=== PATIENT | male | born 1960 | race African-American/Black ===

== ENCOUNTER 2017-12-27 12:24 | Emergency (ER) | payer OTHER ==
--- NOTE | 2017-12-27 13:48 | ER Document Report ---
ED Blood Pressure Problem - General Chief Complaint: High Blood Pressure Stated Complaint: BLOOD PRESSURE ISSUES Time Seen by Provider: 12/27/17 13:26 Notes: pt is a 57 yo AA male with hx/o HTN presents to ED with elevated BP from dentist office. pt has not been on BP meds x 9 mos due to loss of health insurance. pt is asymptomatic. denies headache, chest pain, shortness of breath or dizziness. pt has appointment with PCM this afternoon TRAVEL OUTSIDE OF THE [place] IN LAST 30 DAYS: No - HPI Patient complains to provider of: High blood pressure Quality of pain: No pain Pt currently taking medication for problem: No - No meds 9 months Associated symptoms: None Similar symptoms previously: Yes Recently seen / treated by doctor: No - Patient has appointment today [facility] - Related Data Allergies/Adverse Reactions: lisinopril [Lisinopril] Allergy (Verified 02/01/14 06:57) Past Medical History - General Information source: Patient, Relative - Social History Smoking Status: Never Smoker Chew tobacco use (# tins/day): No Frequency of alcohol use: Social Drug Abuse: None Family History: None Patient has suicidal ideation: No Patient has homicidal ideation: No - Past Medical History Cardiac Medical History: Reports: Hx Hypertension Renal/ Medical History: Denies: Hx Peritoneal Dialysis Past Surgical History: Reports: Hx Orthopedic Surgery - knee - Immunizations Hx Diphtheria, Pertussis, Tetanus Vaccination: Yes Review of Systems - Review of Systems Constitutional: No symptoms reported EENT: No symptoms reported Cardiovascular: No symptoms reported Respiratory: No symptoms reported Gastrointestinal: No symptoms reported Genitourinary: No symptoms reported Male Genitourinary: No symptoms reported Musculoskeletal: No symptoms reported Skin: No symptoms reported Hematologic/Lymphatic: No symptoms reported Neurological/Psychological: No symptoms reported Physical Exam - Vital signs Vitals: Temp Pulse Resp BP 98.5 F 81 20 198/127 H 12/27/17 12:33 12/27/17 12:33 12/27/17 12:33 12/27/17 12:33 Interpretation: Normal - Notes Notes: PHYSICAL EXAMINATION: GENERAL: Well-appearing, well-nourished and in no acute distress. HEAD: Atraumatic, normocephalic. EYES: Pupils equal round and reactive to light, extraocular movements intact, sclera anicteric, conjunctiva are normal. ENT: Nares patent, oropharynx clear without exudates. Moist mucous membranes. NECK: Normal range of motion, supple without lymphadenopathy LUNGS: Breath sounds clear to auscultation bilaterally and equal. No wheezes rales or rhonchi. HEART: Regular rate and rhythm without murmurs ABDOMEN: Soft, nontender, nondistended abdomen. No guarding, no rebound. No masses appreciated. Musculoskeletal: Normal range of motion, no pitting or edema. No cyanosis. NEUROLOGICAL: Cranial nerves grossly intact. Normal speech, normal gait. Normal sensory, motor exams PSYCH: Normal mood, normal affect. SKIN: Warm, Dry, normal turgor, no rashes or lesions noted. - General General appearance: Appears well, Alert - HEENT Head: Normocephalic, Atraumatic Eyes: Normal Pupils: PERRL - Respiratory Respiratory status: No respiratory distress Chest status: Nontender Breath sounds: Normal Chest palpation: Normal - Cardiovascular Rhythm: Regular Heart sounds: Normal auscultation Murmur: No - Abdominal Inspection: Normal Distension: No distension Bowel sounds: Normal Tenderness: Nontender Organomegaly: No organomegaly - Back Back: Normal, Nontender - Extremities General upper extremity: Normal inspection, Nontender, Normal color, Normal ROM , Normal temperature General lower extremity: Normal inspection, Nontender, Normal color, Normal ROM , Normal temperature, Normal weight bearing. No: Lucille's sign - Neurological Neuro grossly intact: Yes Cognition: Normal Orientation: AAOx4 [place] Coma Scale Eye Opening: Spontaneous [place] Coma Scale Verbal: Oriented Willie Coma Scale Motor: Obeys Commands [place] Coma Scale Total: 15 Speech: Normal Motor strength normal: LUE, RUE, LLE, RLE Sensory: Normal - Psychological Associated symptoms: Normal affect, Normal mood - Skin Skin Temperature: Warm Skin Moisture: Dry Skin Color: Normal Course - Re-evaluation Re-evalutation: 12/27/17 13:54 Patient is asymptomatic with his hypertension at this time. He denies any signs and symptoms of hypertensive crisis. No headache, no dizziness, no chest pain, no shortness of breath. Patient is scheduled with his primary care directly upon his discharge from the ER. No further treatment is indicated in the emergency department at this time for his asymptomatic hypertension. - Vital Signs Vital signs: Temp Pulse Resp BP Pulse Ox 98.5 F 81 20 180/120 H 12/27/17 12:33 12/27/17 12:33 12/27/17 12:33 12/27/17 13:36 Discharge - Discharge Clinical Impression: Hypertension Qualifiers: Hypertension type: essential hypertension Qualified Code(s): I10 - Essential ( primary) hypertension Condition: Stable Disposition: HOME, SELF-CARE Instructions: High Blood Pressure, Requiring Treatment ([facility]) Additional Instructions: your blood pressure is high you are not exhibiting any symptoms from the hypertension follow up with your primary care today as scheduled for further evaluation and treatment Forms: Elevated Blood Pressure
[2017-12-27 13:58] VITALS: BP 190/126
== END 2017-12-27 13:58 | disposition home or self-care (01) ==
LOC: ER 12:24
DX: I10 Essential (primary) hypertension (principal)
CPT/HCPCS: 99283

== ENCOUNTER 2018-04-12 19:53 | Emergency (ER) | payer OTHER ==
[2018-04-12] MEDS ORDERED: HYDROCHLOROTHIAZIDE 12.5 MG CAPSULE PO ONE (20:33)
--- NOTE | 2018-04-12 20:36 | ER Document Report ---
ED Medical Screen (RME) - General Chief Complaint: Blurred Vision Stated Complaint: EYE PROBLEM Time Seen by Provider: 04/12/18 20:26 Notes: RAPID MEDICAL EVALUATION DISCLOSURE I have seen this patient as part of a Rapid Medical Evaluation and, if applicable, placed any initially appropriate orders. The patient will be seen and fully evaluated, including a full history and physical exam, by a provider ( in Main ED or Fast Track) when a room becomes available. 57-year-old male PMH hypertension here with complaints of blurry vision in the left eye. He noticed this yesterday evening when he was watching the news. 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 His sister takes amlodipine 10 mg (which is the medicine he is supposed to be taking, but does not have any refills so has not been taking for the past 3 months) so he borrowed several of her pills and took one yesterday as well as 1 at 6 AM this morning. He denies any chest pain shortness of breath numbness tingling. EXAM CTAB RRR TRAVEL OUTSIDE OF THE [place] IN LAST 30 DAYS: No - Related Data Allergies/Adverse Reactions: lisinopril [Lisinopril] Allergy (Verified 02/01/14 06:57) Past Medical History - Social History Chew tobacco use (# tins/day): No Frequency of alcohol use: Occasional Drug Abuse: None - Past Medical History Cardiac Medical History: Reports: Hx Hypertension Renal/ Medical History: Denies: Hx Peritoneal Dialysis Past Surgical History: Reports: Hx Orthopedic Surgery - knee - Immunizations Hx Diphtheria, Pertussis, Tetanus Vaccination: Yes Physical Exam - Vital signs Vitals: Temp Pulse Resp BP Pulse Ox 98.9 F 89 16 160/106 H 96 04/12/18 20:09 04/12/18 20:09 04/12/18 20:04/12/18 20:04/12/18 20:09 Course - Vital Signs Vital signs: Temp Pulse Resp BP Pulse Ox 98.9 F 89 16 160/106 H 96 04/12/18 20:09 04/12/18 20:09 04/12/18 20:09 04/12/18 20:09 04/12/18 20:09
--- NOTE | 2018-04-12 22:38 | RADIOLOGY REPORT (SQ) ---
EXAM DESCRIPTION: CT HEAD WITHOUT COMPLETED DATE/TIME: 04/12/2018 10:16 pm REASON FOR STUDY: blurred vision COMPARISON: None. TECHNIQUE: Axial images acquired through the brain without intravenous contrast. Images reviewed wi th bone, brain and subdural windows. Images stored on PACS. All CT scanners at this facility use dose modulation, iterative reconstruction, and/or weight based d osing when appropriate to reduce radiation dose to as low as reasonably achievable (ALARA). [facility]: Dose Right [facility]: CareDose [facility]: Dose Right [facility]: Teradose 4D [facility]: GetBulb RADIATION DOSE: CT Rad equipment meets quality standard of care and radiation dose reduction techniq ues were employed. CTDIvol: 53.2 mGy. DLP: 1017 mGy-cm. mGy. LIMITATIONS: None. FINDINGS: VENTRICLES: Prominent. CEREBRUM: No masses. No hemorrhage. No midline shift. Areas of low density in the white matter mos t likely due to chronic micro-vascular ischemic change. No evidence for acute infarction. CEREBELLUM: No masses. No hemorrhage. No alteration of density. No evidence for acute infarction. EXTRAAXIAL SPACES: Mild age-related involutional change. No fluid collections. No masses. ORBITS AND GLOBE: No intra- or extraconal masses. Normal contour of globe without masses. CALVARIUM: No fracture. PARANASAL SINUSES: No fluid or mucosal thickening. SOFT TISSUES: No mass or hematoma. OTHER: No other significant finding. IMPRESSION: MILD CHRONIC CHANGES OF ATROPHY AND MICROVASCULAR ISCHEMIA. NO ACUTE PROCESS. EVIDENCE OF ACUTE STROKE: NO. TECHNICAL DOCUMENTATION: JOB ID: [id number] Quality ID # [id number]: Final reports with documentation of one or more dose reduction techniques (e.g., Au tomated exposure control, adjustment of the mA and/or kV according to patient size, use of iterative reconstruction technique) 2010 [employer]- All Rights Reserved Reading location - IP/workstation name: [email or web address]
[2018-04-12 23:14] LABS: ABSOLUTE BASOPHILS # (AUTO) 0.1 10^3/uL (0.0-0.2); ABSOLUTE EOSINOPHILS # (AUTO) 0.2 10^3/uL (0.0-0.6); ABSOLUTE LYMPHOCYTES (AUTO) 3.5 10^3/uL (0.5-4.7); ABSOLUTE MONOCYTES (AUTO) 0.7 10^3/uL (0.1-1.4); ABSOLUTE NEUT (AUTO) 4.7 10^3/uL (1.7-8.2); BASOPHILS % (AUTO) 1.2 % (0-2); EOSINOPHILS % (AUTO) 2.6 % (0-6); HEMATOCRIT 42.1 % (37.9-51.0); HEMOGLOBIN 14.6 g/dL (13.5-17.0); LYMPHOCYTES % (AUTO) 37.9 % (13-45); MEAN CORPUSCULAR HEMOGLOBIN 30.5 pg (27.0-33.4); MEAN CORPUSCULAR HGB CONC 34.7 g/dL (32.0-36.0); MEAN CORPUSCULAR VOLUME 88 fl (80-97); MONOCYTES % (AUTO) 7.6 % (3-13); PLATELET COUNT 253 10^3/uL (150-450); RED BLOOD COUNT 4.79 10^6/uL (4.35-5.55); RED CELL DISTRIBUTION WIDTH 14.6 % (11.5-14.0); SEGMENTED NEUTROPHILS % (AUTO) 50.7 % (42-78); TOTAL CELLS COUNTED % (AUTO) 100 %; WHITE BLOOD COUNT 9.2 10^3/uL (4.0-10.5)
[2018-04-12 23:30] LABS: ANION GAP 10 (5-19); BLOOD UREA NITROGEN 14 mg/dL (7-20); CALCIUM 9.4 mg/dL (8.4-10.2); CARBON DIOXIDE 27 mmol/L (22-30); CHLORIDE 101 mmol/L (98-107); GLUCOSE 255 mg/dL (75-110); POTASSIUM 4.2 mmol/L (3.6-5.0); SODIUM 137.9 mmol/L (137-145)
--- NOTE | 2018-04-12 23:40 | ER Document Report ---
ED General - General Chief Complaint: Blurred Vision Stated Complaint: EYE PROBLEM Time Seen by Provider: 04/12/18 20:26 Notes: Patient is a pleasant 49-year-old male presents with complaint of increasing blurred vision. Patient says that he is noticed that he is now having some blurriness just the right side of his visual field. He says he had an injury to his right eye as a kid. He says since then he has been unable to see well as right eye and it has always blurred. He says spite having a blurred right visual field he usually is able to see clearly with both eyes open because the left eye seems to compensate. He says recently he has noticed that he is seeing warm blurred vision when looking to both eyes. He says if he covers his right eye his vision is completely clear when looking with his left eye along. He says if he covers his left eye his right eye has blurred vision which again is normal for him. He said that his post amlodipine for high blood pressure. He did notice that his blood pressure is little high and therefore he took some of his sister's amlodipine. He denies any recent fevers or infections. No focal weakness or numbness. He said he did have a slight headache earlier but that has since resolved. No neck pain. No abdominal pain. No chest pain. No shortness of breath. No other complaints of TRAVEL OUTSIDE OF THE [place] IN LAST 30 DAYS: No - Related Data Allergies/Adverse Reactions: lisinopril [Lisinopril] Allergy (Verified 02/01/14 06:57) Past Medical History - Social History Smoking Status: Never Smoker Chew tobacco use (# tins/day): No Frequency of alcohol use: Occasional Drug Abuse: None Family History: None Patient has suicidal ideation: No Patient has homicidal ideation: No - Past Medical History Cardiac Medical History: Reports: Hx Hypertension Renal/ Medical History: Denies: Hx Peritoneal Dialysis Past Surgical History: Reports: Hx Orthopedic Surgery - knee - Immunizations Hx Diphtheria, Pertussis, Tetanus Vaccination: Yes Review of Systems - Review of Systems Notes: My Normal Review Basic REVIEW OF SYSTEMS: CONSTITUTIONAL : Denies fever, chills, or sweats. Denies recent illness. EENT: Blurred vision and right visual field. No eye pain. CARDIOVASCULAR: Denies chest pain. RESPIRATORY: Denies cough, cold, or chest congestion. Denies shortness of breath, difficulty breathing, or wheezing. GASTROINTESTINAL: Denies abdominal pain. Denies nausea, vomiting, or diarrhea. Denies constipation. Last BM: MUSCULOSKELETAL: Denies neck or back pain or joint pain or swelling. SKIN: Denies rash or skin lesions. NEUROLOGICAL: Denies altered mental status or loss of consciousness. Denies headache. Denies weakness or paralysis or loss of use of either side. Denies problems with gait or speech. Denies sensory or motor loss. ALL OTHER SYSTEMS REVIEWED AND NEGATIVE. Physical Exam - Vital signs Vitals: Temp Pulse Resp BP Pulse Ox 98.9 F 89 16 160/106 H 96 04/12/18 20:09 04/12/18 20:09 04/12/18 20:09 04/12/18 20:09 04/12/18 20:09 - Notes Notes: General Appearance: Well nourished, alert, cooperative, no acute distress, no obvious discomfort. Well appearing. Vitals: reviewed, See vital signs table. Head: no swelling or tenderness to the head Eyes: PERRL, EOMI, Conjuctiva clear. Bedside ultrasound of both eyes does not show any evidence of retinal vitreous detachment. Mouth: No decreasd moisture Neck: Supple, no neck tenderness, No thyromegaly Lungs: No wheezing, No rales, No rhonci, No accessory muscle use, good air exchange bilaterally. Heart: Normal rate, Regular rythm, No murmur, no rub Abdomen: Normal BS, soft, No rigidity, No abdominal tenderness, No guarding, no rebound, no abdominal masses, no organomegaly Extremities: strength 5/5 in all extremities, good pulses in all extremities, no swelling or tenderness in the extremities, no edema. Skin: warm, dry, appropriate color, no rash Neuro: speech clear, oriented x 3, normal affect, responds appropriately to questions. Cranial nerves II through XII are intact with exception of some blurred vision in the right eye. Distal sensation intact. Patient moves all extremities without difficulty. Good strength in all 4 extremities. Normal coordination of movements. - HEENT Visual acuity- Right eye: 0 Visual acuity- Left eye: 20/30 Visual acuity- Both eyes: 20/30 Corrective lenses worn: No Course - Re-evaluation Re-evalutation: 04/13/18 05:44 Is really unclear exactly why the patient is starting to have some more blurred vision in his visual fear that he does chronically. Patient's function is left eye, which is his good eye, appears to still be normal. His good visual acuity with the left eye. When he covers his right eye he sees very clearly on his left eye without any blurred vision in his visual field. The only time he has blurred vision and visual field is when he leaves his right eye open. Patient says he chronically has blurry vision with his right eye is just prior to recently he did not really notice of blurred vision as much when his left eye was open. He did have a mild headache earlier today but that has since resolved. He does have hypertension which he is supposed to be on Melisa for but he is not been taking it for some time now. I will place him back on his blood pressure medication. I informed her these of established himself and follow-up closely with primary care doctor. There is no signs of stroke and that he does not have any focal weakness or numbness, no slurred speech, no discoordination. He looks very well and I feel safe to be discharged home. I informed him he must follow-up with eye doctor next 1-2 days for close reevaluation. Encourage him return to ER immediately if he has severe headache, vomiting, worsening vision changes, chest pain, shortness of breath, focal weakness or numbness, or feels unwell. Patient agrees with plan will be discharged home. Dictation of this chart was performed using voice recognition software; therefore, there may be some unintended grammatical errors. - Vital Signs Vital signs: Temp Pulse Resp BP Pulse Ox 98 F 89 17 166/119 H 96 04/13/18 01:10 04/12/18 20:09 04/13/18 01:01 04/13/18 01:00 04/13/18 01:01 - Laboratory Result Diagrams: 04/12/18 22:55 04/12/18 22:55 Laboratory results interpreted by me: 04/12/18 04/12/18 22:55 22:55 RDW 14.6 H Glucose 255 H Discharge - Discharge Clinical Impression: Blurred vision, right eye, Hyperglycemia Hypertension Qualifiers: Hypertension type: unspecified Qualified Code(s): I10 - Essential (primary) hypertension Condition: Good Disposition: HOME, SELF-CARE Instructions: Family Physicians / Practices Additional Instructions: Please take the Melisa as prescribed. Please return to the ER immediately if you develop worsening high blood pressure, recurrent headache, chest pain, difficulty breathing, worsening visual changes, or if you feel unwell. Please follow up with the opthamologist ( Dr. Story or Dr. Naylor) for close reevaluation due to your visual changes. Please follow up and establish yourself with a primary care physician in the area. I have included a list of local primary care doctors. Please start taking the Metformin to help with blood sugar control as your blood sugar was high today. Prescriptions: Amlodipine Bes/Olmesartan Med [Melisa 10-40 mg Tablet] 1 each PO DAILY #30 tablet Metformin HCl [Glucophage 500 mg Tablet] 500 mg PO BID #60 tablet Referrals: RODRIGO STORY DO [ACTIVE STAFF] - Follow up tomorrow NATHANIEL NAYLOR MD [ACTIVE STAFF] - Follow up tomorrow
[2018-04-12] MEDS ORDERED: LOSARTAN POTASSIUM 50 MG TABLET PO ONE (23:49)
[2018-04-12] MEDS ORDERED: METFORMIN HCL 500 MG TABLET PO ONE (23:50)
[2018-04-13 01:13] VITALS: BP 166/119
== END 2018-04-13 01:18 | disposition home or self-care (01) ==
LOC: ER 19:53
DX: H53.8 Other visual disturbances (principal); R73.9 Hyperglycemia, unspecified; I10 Essential (primary) hypertension
CPT/HCPCS: 36415; 70450; 80048; 85025; 99284

== ENCOUNTER 2019-01-28 08:55 | Emergency (ER) | payer OTHER ==
[2019-01-28] MEDS ORDERED: ACETAMINOPHEN 325 MG TABLET PO ONE (09:30)
--- NOTE | 2019-01-28 09:35 | ER Document Report ---
ED Medical Screen (RME) - General Chief Complaint: Rib Pain Stated Complaint: RIB PAIN Time Seen by Provider: 01/28/19 09:25 Mode of Arrival: Ambulatory Information source: Patient Notes: Patient is a 58-year-old male who presents to the emergency department with chief complaint of bilateral rib pain, fever and productive cough. Patient reports cough started Monday and on Monday he began having pain to his anterior bilateral ribs. Patient reports pain is worse with deep breaths. Patient denies any nausea or vomiting. He is a non-smoker. His primary care is at the [place] [facility]. Reports history of pneumonia, denies history of pulmonary embolism. Patient upgraded to ISELA 2 due to fever, tachycardia and hypoxia with O2 sat of 90%. Exam: Lung sounds are clear and equal bilaterally. I have greeted and performed a rapid initial assessment of this patient. A comprehensive ED assessment and evaluation of the patient, analysis of test results and completion of the medical decision making process will be conducted by additional ED providers. Dictation of this chart was performed using voice recognition software; therefore, there may be some unintended grammatical errors. TRAVEL OUTSIDE OF THE [place] IN LAST 30 DAYS: No - Related Data Allergies/Adverse Reactions: lisinopril [Lisinopril] Allergy (Verified 01/28/19 08:59) Past Medical History - Past Medical History Cardiac Medical History: Reports: Hx Hypertension Renal/ Medical History: Denies: Hx Peritoneal Dialysis Past Surgical History: Reports: Hx Orthopedic Surgery - knee - Immunizations Hx Diphtheria, Pertussis, Tetanus Vaccination: Yes Physical Exam - Vital signs Vitals: Temp Pulse Resp BP Pulse Ox 102.5 F H 120 H 16 157/100 H 91 L 01/28/19 09:22 01/28/19 09:22 01/28/19 09:22 01/28/19 09:22 01/28/19 09:22 Course - Vital Signs Vital signs: Temp Pulse Resp BP Pulse Ox 102.5 F H 120 H 16 157/100 H 91 L 01/28/19 09:22 01/28/19 09:22 01/28/19 09:22 01/28/19 09:22 01/28/19 09:22
--- NOTE | 2019-01-28 10:01 | RADIOLOGY REPORT (SQ) ---
EXAM DESCRIPTION: CHEST 2 VIEWS COMPLETED DATE/TIME: 01/28/2019 9:45 am REASON FOR STUDY: fever, cough, rib pain COMPARISON: Two-view chest 02/01/2014 EXAM PARAMETERS: NUMBER OF VIEWS: two views TECHNIQUE: Digital Frontal and Lateral radiographic views of the chest acquired. RADIATION DOSE: NA LIMITATIONS: none FINDINGS: LUNGS AND PLEURA: No opacities, masses or pneumothorax. No pleural effusion. MEDIASTINUM AND HILAR STRUCTURES: No masses or contour abnormalities. HEART AND VASCULAR STRUCTURES: Heart normal size. No evidence for failure. BONES: No acute findings. HARDWARE: None in the chest. OTHER: No other significant finding. IMPRESSION: NO ACUTE RADIOGRAPHIC FINDING IN THE CHEST. TECHNICAL DOCUMENTATION: JOB ID: [id number] [employer]- All Rights Reserved Reading location - IP/workstation name: [email or web address]
[2019-01-28] MEDS ORDERED: NORMAL SALINE 1000 ML 1,000 ML IV ONE (10:03)
--- NOTE | 2019-01-28 10:08 | ER Document Report ---
ED General - General Chief Complaint: Rib Pain Stated Complaint: RIB PAIN Time Seen by Provider: 01/28/19 09:25 Mode of Arrival: Ambulatory Notes: Patient began getting sick last Monday or he has had some ge neralized rib pain throughout his. He first noted a dry cough. Entire thorax, anteriorly and posteriorly. He says it feels as if a 50 pound child is sitting on his chest. His dry cough has now become productive in the past couple of days and was producing clear phlegm yesterday, but this morning he coughed up some brown material. Has not seen actual blood in his sputum. Started running fever on Monday and it has gotten worse on Monday. Did not get a flu shot this year. Patient has no history of any lung disease. Does not smoke. PMH: NIDDM, hypertension, high cholesterol. No history of any heart disease. [facility] TRAVEL OUTSIDE OF THE [place] IN LAST 30 DAYS: No - Related Data Allergies/Adverse Reactions: lisinopril [Lisinopril] Allergy (Verified 01/28/19 08:59) Past Medical History - General Information source: Patient - Social History Smoking Status: Never Smoker Chew tobacco use (# tins/day): No Frequency of alcohol use: Occasional Drug Abuse: None Family History: None, Reviewed & Not Pertinent Patient has suicidal ideation: No Patient has homicidal ideation: No - Past Medical History Cardiac Medical History: Reports: Hx Hypercholesterolemia, Hx Hypertension Denies: Hx Coronary Artery Disease, Hx Heart Attack Pulmonary Medical History: Reports: Hx Pneumonia Denies: Hx Asthma, Hx COPD Endocrine Medical History: Reports: Hx Diabetes Mellitus Type 2 Past Surgical History: Reports: Hx Orthopedic Surgery - Right knee - Immunizations Hx Diphtheria, Pertussis, Tetanus Vaccination: Yes Review of Systems - Review of Systems Notes: REVIEW OF SYSTEMS: CONSTITUTIONAL : Has had fever. EENT: Denies eye, ear, nose or mouth or throat pain or other symptoms. CARDIOVASCULAR: See HPI. RESPIRATORY: See HPI. GASTROINTESTINAL: Denies abdominal pain or nausea, vomiting, or diarrhea. GENITOURINARY: Denies difficulty or painful urinating, urinary frequency, blood in urine. MUSCULOSKELETAL: Denies back or neck pain. Denies joint pain or swelling. SKIN: Denies rash or skin lesions. NEUROLOGICAL: Denies LOC or altered mental status. Denies headache. Denies sensory loss or motor deficits. ALL OTHER SYSTEMS REVIEWED AND NEGATIVE. Physical Exam - Vital signs Vitals: Temp Pulse Resp BP Pulse Ox 102.5 F H 120 H 16 157/100 H 91 L 01/28/19 09:22 01/28/19 09:22 01/28/19 09:22 01/28/19 09:22 01/28/19 09:22 Interpretation: Tachycardic, Febrile Notes: PHYSICAL EXAMINATION: GENERAL: Well-appearing, in no acute distress. Temp 102.5 orally. O2 sat 92% on room air. HEAD: Atraumatic, normocephalic. EYES: Pupils equal round and reactive to light, extraocular movements intact. ENT: oropharynx clear without exudates. Moist mucous membranes. NECK: Normal range of motion, supple. LUNGS: Breath sounds clear and equal bilaterally. HEART: Regular rate and rhythm without murmurs. Heart rate 116 at triage. ABDOMEN: Soft, nontender. No guarding or rebound. No masses. BACK: No tenderness throughout entire back. EXTREMITIES: Normal range of motion without pain. Negative Homans bilaterally. NEUROLOGICAL: Normal speech, normal gait. Normal sensory, motor, and reflex exams. Awake, alert, and oriented x3. Cranial nerves normal. PSYCH: Normal mood, normal affect. SKIN: Warm, dry, no rashes. Course - Re-evaluation Re-evalutation: 01/28/19 13:03 Other than a white count of 13,000, patient has an essentially normal workup. CT scan of his chest showed no evidence of blood clots or pneumonia. Other lab work was unremarkable. Patient was started on IV antibiotic of Rocephin in the ED. I am still going to send him home on an antibiotic (Z-Alli), even though this might nocturnist physician to be a viral illness. - Vital Signs Vital signs: Temp Pulse Resp BP Pulse Ox 100 F 117 H 23 H 113/73 97 01/28/19 12:42 01/28/19 09:35 01/28/19 12:00 01/28/19 11:01 01/28/19 12:00 - Laboratory Result Diagrams: 01/28/19 10:00 01/28/19 10:00 Laboratory results interpreted by me: 01/28/19 01/28/19 01/28/19 10:00 10:00 10:20 WBC 13.1 H Hgb 13.2 L Lymphocytes % 7.3 L Monocytes % 14.7 H Absolute Neutrophils 10.1 H Absolute Monocytes 1.9 H Sodium 135.8 L Glucose 243 H Urine Protein 30 H Urine Blood SMALL H Urine Urobilinogen 2.0 H - Diagnostic Test Radiology results interpreted by me: 01/28/19 13:03 Chest x-ray was normal. Discharge - Discharge Clinical Impression: Fever, URI (upper respiratory infection), Bronchitis Condition: Stable Disposition: HOME, SELF-CARE Additional Instructions: UPPER RESPIRATORY ILLNESS: You have a viral infection of the respiratory passages -- a "cold." This common infection causes nasal congestion, drainage, and often sore throat and cough. It is highly contagious. The disease usually lasts about 10 to 14 days. There is no "cure" for the viral infection -- it must run its course. If there is a complication, such as bacterial infection in the nose, sinuses, middle ear, or bronchial tubes, antibiotics may be required. The antibiotics won't affect the virus. Drink plenty of fluids. A humidifier may help. An expectorant medication or decongestant may make you more comfortable. Use acetaminophen or ibuprofen for fever or aches. See the doctor if fever persists over two days, if there is any significant worsening of your symptoms, or if you simply fail to improve as expected. Bronchitis You have acute bronchitis. This disease is an infection or inflammation of the air passageways in your lungs. Symptoms usually include cough, low grade fever, shortness of breath, and wheezing. The cough usually persists for a couple of weeks. Most cases of bronchitis get better without antibiotics. We prescribe antibiotics when we believe bacteria are damaging your airways, or if there's high risk the bronchitis will worsen into pneumonia. Increase your fluid intake. A cool mist humidifier may make your lungs more comfortable. An expectorant (cough medicine that loosens phlegm) can help. If you smoke, STOP!!! Recovery from bronchitis can be somewhat slow, but you should see improvement within a day or two. Repeated episodes of bronchitis may result in lung damage -- for example, chronic bronchitis, recurrent pneumonias, or emphysema. Call the doctor if you develop increasing fever, shortness of breath, chest pain, bloody sputum, or otherwise worsen. If you have not improved at all after several days, contact the physician. USE OF ACETAMINOPHEN (Tylenol): Acetaminophen may be taken for pain relief or fever control. It's much safer than aspirin, offering a wider range of "safe" dosages. It is safe during . Some brand names are Tylenol, Panadol, Datril, Anacin 3, Tempra, and Liquiprin. Acetaminophen can be repeated every four hours. The following are maximum recommended dosages: >89 pounds or adults 650 mg to 900 mg Acetaminophen can be repeated every four hours. Maximum dose not to exceed 4000 mg a day. Azithromycin Azithromycin (Zithromax) is a broad spectrum antibiotic in the same class as erythromycin. It can treat a variety of bacterial infections, but is most frequently used for respiratory infections. Azithromycin is extremely long-lasting. It accumulates in body tissues and continues to kill bacteria for many days. In order to improve absorption, Azithromycin should be taken at least one hour before or two hours after a meal. It does not have the same strong tendency to upset the stomach as erythromycin and is usually very well tolerated. Patients who have had a rash or other true allergic reactions to erythromycin should not take this medication. Call if you develop gastrointes tinal distress, severe diarrhea, rash, hives, itching, or shortness of breath. FOLLOW-UP CARE: If you have been referred to a physician for follow-up care, call the physicians office for an appointment as you were instructed or within the next two days. If you experience worsening or a significant change in your symptoms, notify the physician immediately or return to the Emergency Department at any time for re-evaluation. Drink plenty of fluids and get some rest. Return if you have new or worsening symptoms. Take the medication prescribed. Prescriptions: Azithromycin [Zithromax 250 mg Tablet] 250 mg PO ASDIR PRN #6 tablet PRN Reason:
[2019-01-28 10:16] LABS: ABSOLUTE BASOPHILS # (AUTO) 0.1 10^3/uL (0.0-0.2); ABSOLUTE EOSINOPHILS # (AUTO) 0.1 10^3/uL (0.0-0.6); ABSOLUTE MONOCYTES (AUTO) 1.9 10^3/uL (0.1-1.4); ABSOLUTE NEUT (AUTO) 10.1 10^3/uL (1.7-8.2); BASOPHILS % (AUTO) 0.6 % (0-2); EOSINOPHILS % (AUTO) 0.4 % (0-6); HEMOGLOBIN 13.2 g/dL (13.5-17.0); LYMPHOCYTES % (AUTO) 7.3 % (13-45); MEAN CORPUSCULAR HEMOGLOBIN 29.6 pg (27.0-33.4); MEAN CORPUSCULAR HGB CONC 34.8 g/dL (32.0-36.0); MEAN CORPUSCULAR VOLUME 85 fl (80-97); MONOCYTES % (AUTO) 14.7 % (3-13); PLATELET COUNT 308 10^3/uL (150-450); RED BLOOD COUNT 4.46 10^6/uL (4.35-5.55); RED CELL DISTRIBUTION WIDTH 13.8 % (11.5-14.0); TOTAL CELLS COUNTED % (AUTO) 100 %; WHITE BLOOD COUNT 13.1 10^3/uL (4.0-10.5)
[2019-01-28] MEDS ORDERED: CEFTRIAXONE 1 GM/D5W RTU 1 GM/50 ML RTUPB IV ONE (10:18)
[2019-01-28 10:38] LABS: ALANINE AMINOTRANSFERASE 40 U/L (21-72); ALBUMIN 4.2 g/dL (3.5-5.0); ALKALINE PHOSPHATASE 73 U/L (38-126); ANION GAP 10 (5-19); ASPARTATE AMINO TRANSFERASE 36 U/L (17-59); BILIRUBIN,DIRECT 0.3 mg/dL (0.0-0.4); BILIRUBIN,TOTAL 0.6 mg/dL (0.2-1.3); BLOOD UREA NITROGEN 14 mg/dL (7-20); CALCIUM 9.1 mg/dL (8.4-10.2); CARBON DIOXIDE 24 mmol/L (22-30); CHLORIDE 102 mmol/L (98-107); GLUCOSE 243 mg/dL (75-110); POTASSIUM 3.8 mmol/L (3.6-5.0); SODIUM 135.8 mmol/L (137-145); TOTAL PROTEIN 8.2 g/dL (6.3-8.2)
[2019-01-28 11:40] LABS: APPEARANCE,URINE CLEAR; BILIRUBIN,URINE NEGATIVE (NEGATIVE); COLOR,URINE YELLOW; GLUCOSE, URINE NEGATIVE (NEGATIVE); KETONES,URINE NEGATIVE (NEGATIVE); LEUKOCYTE ESTERASE,URINE NEGATIVE (NEGATIVE); NITRITE,URINE NEGATIVE (NEGATIVE); PROTEIN,URINE 30 mg/dL (NEGATIVE); URINE SPECIFIC GRAVITY 1.014
--- NOTE | 2019-01-28 11:45 | RADIOLOGY REPORT (SQ) ---
EXAM DESCRIPTION: CTA CHEST COMPLETED DATE/TIME: 01/28/2019 11:31 am REASON FOR STUDY: Cough and fever, generalized chest pain, normal cx COMPARISON: Same day chest radiograph TECHNIQUE: CT scan of the chest performed using helical scanning technique with dynamic intravenous contrast injection. Images reviewed with lung, soft tissue and bone windows. Reconstructed coronal and sagittal MPR images reviewed. Additional 3 dimensional post-processing performed to develop Maximal Intensity Projection images (FL P). All images stored on PACS. All CT scanners at this facility use dose modulation, iterative reconstruction, and/or weight based d osing when appropriate to reduce radiation dose to as low as reasonably achievable (ALARA). [facility]: Dose Right [facility]: CareDose [facility]: Dose Right [facility]: Teradose 4D [facility]: MashON CONTRAST TYPE AND DOSE: contrast/concentration: Isovue 350.00 mg/ml; Total Contrast Delivered: 87.0 ml; Total Saline Delivered: 90.0 ml Contrast bolus optimized for the pulmonary arteries. Not diagnostic for the aorta. RENAL FUNCTION: GFR > 60. RADIATION DOSE: CT Rad equipment meets quality standard of care and radiation dose reduction techniq ues were employed. CTDIvol: 16.5 - 30.8 mGy. DLP: 1173 mGy-cm. . LIMITATIONS: Poor contrast bolus FINDINGS: LUNGS AND PLEURA: No masses, infiltrates, or pneumothorax. No pleural effusions or pleura l calcifications. AORTA AND GREAT VESSELS: No aneurysm. Contrast bolus not optimized for the aorta. HEART: No pericardial effusion. Left coronary artery calcifications. PULMONARY ARTERIES: Evaluation of the pulmonary arteries is very limited by poor contrast bolus (main pulmonary artery HU = 95). Within this limitation, there is no obvious central or proximal lobar pu lmonary embolism. Evaluation of the segmental and more distal vessels is nondiagnostic. HILAR AND MEDIASTINAL STRUCTURES: No identified masses or abnormal nodes. HARDWARE: None in the chest. UPPER ABDOMEN: No significant findings. Limited exam. THYROID AND OTHER SOFT TISSUES: No masses. No adenopathy. BONES: No acute or significant finding. Disc degenerative disease of the thoracic spine. 3D MIPS: Confirm above findings. OTHER: No other significant finding. IMPRESSION: 1. Evaluation of the pulmonary arteries is very limited by poor contrast bolus (main pu lmonary artery HU = 95). Within this limitation, there is no obvious central or proximal lobar pulmo nary embolism. Evaluation of the segmental and more distal vessels is nondiagnostic. If there is hi gh persistent concern for pulmonary embolism, further evaluation may include repeat CT angiogram, pul monary VQ scan, and/or lower extremity Doppler ultrasound to evaluate for DVT nidus. 2. No significant airspace disease. 3. Coronary artery disease. COMMENT: Quality ID # [id number]: Final reports with documentation of one or more dose reduction techniques (e.g., Automated exposure control, adjustment of the mA and/or kV according to patient size, use of iterative reconstruction technique) TECHNICAL DOCUMENTATION: JOB ID: [id number] [employer]- All Rights Reserved Reading location - IP/workstation name: [email or web address]
[2019-01-28 12:02] VITALS: BP 113/73
[2019-01-28 12:49] LABS: A TYPE INFLUENZA AG NEGATIVE (NEGATIVE); B INFLUENZA AG NEGATIVE (NEGATIVE)
== END 2019-01-28 13:16 | disposition home or self-care (01) ==
LOC: ER 08:55
DX: J06.9 Acute upper respiratory infection, unspecified (principal); J40 Bronchitis, not specified as acute or chronic; R07.81 Pleurodynia; R50.9 Fever, unspecified; R00.0 Tachycardia, unspecified; E11.9 Type 2 diabetes mellitus without complications; I10 Essential (primary) hypertension; E78.00 Pure hypercholesterolemia, unspecified
CPT/HCPCS: 99284; 96361; 96374; 36415; 87040; 87070; 87086; 87205; 85025; 87077; 80053; 81001; 83605; 87804; 71046; 71275; J7030; J0696

== ENCOUNTER 2019-04-23 12:18 | Inpatient (IN) | payer OTHER ==
[2019-04-23] MEDS ORDERED: DILTIAZEM HCL INJ 25 MG/5 ML VIAL ONE (12:33)
[2019-04-23] MEDS ORDERED: DILTIAZEM HCL INJ 25 MG/5 ML VIAL IV ONE ×2 (12:36→13:00)
[2019-04-23] MEDS ORDERED: DILTIAZEM HCL/D5W 125 MG/125 ML RTUINJ IV ONE (12:41)
[2019-04-23] MEDS: DILTIAZEM HCL/D5W 125 MG/125 ML RTUINJ IV PRN (12:43)
[2019-04-23] MEDS ORDERED: NORMAL SALINE 1000 ML 1,000 ML IV ONE ×2 (12:48→13:09)
[2019-04-23] MEDS ORDERED: ASPIRIN 81 MG TABLET, CHEWABLE PO ONE (13:04)
[2019-04-23] MEDS ORDERED: MAGNESIUM SULFATE/D5W 1 GM/100 ML RTUPB IV ONE (13:08)
--- NOTE | 2019-04-23 13:08 | ER Document Report ---
ED General - General Chief Complaint: Irregular Pulse Stated Complaint: BLOOD PRESSURE ISSUES Mode of Arrival: Medic Information source: Patient, Relative, Emergency Med Personnel Notes: 58-year-old male with hypertension, hyperlipidemia, type 2 diabetes presents via EMS from his primary care physician's office at the [facility] when he was found to be in atrial fibrillation at a heart rate of 180. Patient denies any previous history of atrial fibrillation. He denies any chest pain, palpitations, shortness of breath. He states his blood pressure has been running high despite being on 3 different blood pressure medications including losartan, amlodipine and hydrochlorothiazide and this is the reason that he went to his primary care physician's office. Patient denies headache, dizziness, recent illness, abdominal pain, dysuria, hematuria. Patient does not smoke, occasionally drinks. TRAVEL OUTSIDE OF THE [place] IN LAST 30 DAYS: No - HPI Onset: Just prior to arrival Onset/Duration: Sudden Quality of pain: No pain Associated symptoms: None. denies: Chest pain, Fever, Hurts to breath, Leg swelling, Nausea, Vomiting, Shortness of breath, Sweating - Related Data Allergies/Adverse Reactions: lisinopril [Lisinopril] Allergy (Verified 01/28/19 08:59) Past Medical History - Social History Smoking Status: Never Smoker Chew tobacco use (# tins/day): No Frequency of alcohol use: Social Drug Abuse: None Family History: None, Reviewed & Not Pertinent Patient has suicidal ideation: No Patient has homicidal ideation: No - Past Medical History Cardiac Medical History: Reports: Hx Hypercholesterolemia, Hx Hypertension Denies: Hx Coronary Artery Disease, Hx Heart Attack Pulmonary Medical History: Reports: Hx Pneumonia Denies: Hx Asthma, Hx COPD Endocrine Medical History: Reports: Hx Diabetes Mellitus Type 2 Renal/ Medical History: Denies: Hx Peritoneal Dialysis Past Surgical History: Reports: Hx Orthopedic Surgery - Right knee - Immunizations Hx Diphtheria, Pertussis, Tetanus Vaccination: Yes Review of Systems - Review of Systems Notes: REVIEW OF SYSTEMS: CONSTITUTIONAL : Denies fever, chills, or sweats. Denies recent illness. Denies weight loss, recent hospitalizations. EENT: Denies visual changes, eye pain. Denies sore throat, oral lesions, diff iculty swallowing. CARDIOVASCULAR: Denies chest pain. Denies palpitations. Denies lower extremity edema. RESPIRATORY: Denies cough. Denies shortness of breath, wheezing. GASTROINTESTINAL: Denies abdominal pain or distention. Denies nausea, vomiting, or diarrhea. Denies blood in vomitus, stools, or per rectum. Denies black, tarry stools. Denies constipation. GENITOURINARY: Denies difficulty urinating, painful urination, frequency, blood in urine, testicular pain or penile discharge. MUSCULOSKELETAL: Denies back or neck pain or stiffness. Denies joint pain or swelling. SKIN: Denies rash, lesions or sores. HEMATOLOGIC : Denies easy bruising or bleeding. LYMPHATIC: Denies swollen glands. NEUROLOGICAL: Denies confusion or altered mental status. Denies loss of consciousness. Denies dizziness or lightheadedness. Denies headache. Denies weakness or paralysis. Denies problems difficulty with ambulation, slurred speech. Denies sensory loss, numbness, or tingling. Denies seizures. PSYCHIATRIC: Denies anxiety or stress. Denies depression, suicidal ideation, or Physical Exam - Vital signs Vitals: Resp BP Pulse Ox 21 H 126/75 H 97 04/23/19 12:25 04/23/19 12:25 04/23/19 12:25 - Notes Notes: PHYSICAL EXAMINATION: GENERAL: Well-appearing, well-nourished and in no acute distress. HEAD: Atraumatic, normocephalic. EYES: Pupils equal round and reactive to light, extraocular movements intact, sclera anicteric, conjunctiva are normal. ENT: Nares patent, oropharynx clear without exudates. Moist mucous membranes. NECK: Normal range of motion, supple without lymphadenopathy LUNGS: Breath sounds clear to auscultation bilaterally and equal. No wheezes rales or rhonchi. HEART: Tachycardic, irregular rhythm ABDOMEN: Soft, nontender, nondistended abdomen. No guarding, no rebound. No masses appreciated. Musculoskeletal: Normal range of motion, no pitting or edema. No cyanosis. NEUROLOGICAL: Cranial nerves grossly intact. Normal speech, normal gait. Normal sensory, motor exams PSYCH: Normal mood, normal affect. SKIN: Warm, Dry, normal turgor, no rashes or lesions noted. Course - Re-evaluation Re-evalutation: Laboratory 04/23/19 04/23/19 04/23/19 12:38 12:38 12:38 WBC 7.8 RBC 4.62 Hgb 13.7 Hct 40.5 MCV 88 MCH 29.6 MCHC 33.8 RDW 15.3 H Plt Count 312 Seg Neutrophils % 45.8 Lymphocytes % 42.1 Monocytes % 9.8 Eosinophils % 1.4 Basophils % 0.9 Absolute Neutrophils 3.6 Absolute Lymphocytes 3.3 Absolute Monocytes 0.8 Absolute Eosinophils 0.1 Absolute Basophils 0.1 PT INR Sodium 136.5 L Potassium 4.2 Chloride 101 Carbon Dioxide 26 Anion Gap 10 BUN 26 H Creatinine 1.33 H Est GFR ( Amer) > 60 Est GFR (Non-Af Amer) 55 L Glucose 191 H Calcium 9.3 Phosphorus 3.4 Magnesium 1.5 L Total Bilirubin 0.7 Direct Bilirubin 0.3 Neonat Total Bilirubin Not Reportable Neonat Direct Bilirubin Not Reportable Neonat Indirect Bili Not Reportable AST 18 ALT 20 L Alkaline Phosphatase 54 Creatine Kinase 81 CK-MB (CK-2) 0.71 Troponin I < 0.012 Total Protein 7.1 Albumin 3.7 TSH Free T4 Free T3 pg/mL 04/23/19 04/23/19 12:38 12:38 WBC RBC Hgb Hct MCV MCH MCHC RDW Plt Count Seg Neutrophils % Lymphocytes % Monocytes % Eosinophils % Basophils % Absolute Neutrophils Absolute Lymphocytes Absolute Monocytes Absolute Eosinophils Absolute Basophils PT 14.0 INR 1.08 Sodium Potassium Chloride Carbon Dioxide Anion Gap BUN Creatinine Est GFR ( Amer) Est GFR (Non-Af Amer) Glucose Calcium Phosphorus Magnesium Total Bilirubin Direct Bilirubin Neonat Total Bilirubin Neonat Direct Bilirubin Neonat Indirect Bili AST ALT Alkaline Phosphatase Creatine Kinase CK-MB (CK-2) Troponin I Total Protein Albumin TSH 1.71 Free T4 1.01 Free T3 pg/mL 4.14 Chest X-Ray 04/23/19 00:00 IMPRESSION: NO ACUTE FINDINGS. Temp Pulse Resp BP Pulse Ox 97.8 F 19 98/74 L 97 04/23/19 12:28 04/23/19 16:00 04/23/19 16:55 04/23/19 16:00 04/23/19 13:06 58-year-old male with hypertension, hyperlipidemia presents via EMS from his [facility] physician's office after being found in atrial fibrillation with RVR. Patient's initial heart rate upon arrival is 188. Blood pressure 118/70. Patient did receive IV fluids prior to arrival by EMS. An initial Cardizem bolus of 25 mg was given and the patient was placed on a Cardizem drip. After 20 minutes patient's heart rate still remained in the 170s so an additional Cardizem bolus of 15 mg was administered. 04/23/19 13:55 Patient's heart rate is in the 160s so digoxin 0.125 mg was administered x2. Patient's heart rate had no improvement after this and so 2.5 mg of metoprolol were given and patient's current heart rate is 127. We will continue to monitor. Current heart rate 108/74. Patient remains asymptomatic. Crash cart outside of the room patient does have pads on. 04/23/19 14:57 Additional 5 mg of metoprolol was given and patient's heart rate is now 139. There continues to be significant fluctuations in the patient's heart rate. He does remain asymptomatic. I did consult Dr. Matthieu Jung wet end supervisor who recommends continuation of the Cardizem drip and scheduled Lopressor 2.5 mg every 4 hours as needed for a heart rate over 140. This should be held if p atient's systolic pressure is less than 100. I have talked to Dr. Mishra who has agreed to admit the patient to the [facility]. 04/23/19 17:08 04/23/19 17:09 CBC, CMP, cardiac enzymes, thyroid panel are all within normal limits. - Vital Signs Vital signs: Temp Pulse Resp BP Pulse Ox 97.8 F 19 98/74 L 97 04/23/19 12:28 04/23/19 16:00 04/23/19 16:55 04/23/19 16:00 - Laboratory Result Diagrams: 04/23/19 12:38 04/23/19 12:38 Laboratory results interpreted by me: 04/23/19 04/23/19 12:38 12:38 RDW 15.3 H Sodium 136.5 L BUN 26 H Creatinine 1.33 H Est GFR (Non-Af Amer) 55 L Glucose 191 H Magnesium 1.5 L ALT 20 L - Diagnostic Test Radiology reviewed: Image reviewed, Reports reviewed - EKG Interpretation by Me Rate: Tachycardia Rhythm: A.Fib When compared to previous EKG there are: Previous EKG unavailable Critical Care Note - Critical Care Note Total time excluding time spent on procedures (mins): 45 - Minutes of critical care time spent in direct contact evaluating and reevaluating the patient, treating symptoms, reviewing labs and studies and speaking with family and consultants excluding any procedures Discharge - Discharge Clinical Impression: Atrial fibrillation with RVR Hypotension Qualifiers: Hypotension type: unspecified hypotension type Qualified Code(s): I95.9 - Hypotension, unspecified Type 2 diabetes mellitus Qualifiers: Diabetes mellitus fpc insulin use: without appraisal analyst use Diabetes mellitus complication status: without complication Qualified Code(s): E11.9 - Type 2 diabetes mellitus without complications Condition: Good Disposition: ADMITTED INPATIENT Admitting Provider: Tali (Hospitalist) Unit Admitted: [facility]
[2019-04-23] MEDS ORDERED: DIGOXIN INJ 0.5 MG/2 ML AMPULE IV ONE ×3 (13:09→17:48)
[2019-04-23 13:47] LABS: ABSOLUTE BASOPHILS # (AUTO) 0.1 10^3/uL (0.0-0.2); ABSOLUTE EOSINOPHILS # (AUTO) 0.1 10^3/uL (0.0-0.6); ABSOLUTE LYMPHOCYTES (AUTO) 3.3 10^3/uL (0.5-4.7); ABSOLUTE MONOCYTES (AUTO) 0.8 10^3/uL (0.1-1.4); ABSOLUTE NEUT (AUTO) 3.6 10^3/uL (1.7-8.2); BASOPHILS % (AUTO) 0.9 % (0-2); EOSINOPHILS % (AUTO) 1.4 % (0-6); HEMATOCRIT 40.5 % (37.9-51.0); HEMOGLOBIN 13.7 g/dL (13.5-17.0); LYMPHOCYTES % (AUTO) 42.1 % (13-45); MEAN CORPUSCULAR HEMOGLOBIN 29.6 pg (27.0-33.4); MEAN CORPUSCULAR HGB CONC 33.8 g/dL (32.0-36.0); MEAN CORPUSCULAR VOLUME 88 fl (80-97); MONOCYTES % (AUTO) 9.8 % (3-13); PLATELET COUNT 312 10^3/uL (150-450); RED BLOOD COUNT 4.62 10^6/uL (4.35-5.55); RED CELL DISTRIBUTION WIDTH 15.3 % (11.5-14.0); SEGMENTED NEUTROPHILS % (AUTO) 45.8 % (42-78); TOTAL CELLS COUNTED % (AUTO) 100 %; WHITE BLOOD COUNT 7.8 10^3/uL (4.0-10.5)
[2019-04-23] MEDS ORDERED: METOPROLOL TARTRATE PF/INJ 5 MG/5 ML SDV IV ONE ×3 (13:47→14:14)
[2019-04-23 13:49] LABS: ALANINE AMINOTRANSFERASE 20 U/L (21-72); ALBUMIN 3.7 g/dL (3.5-5.0); ALKALINE PHOSPHATASE 54 U/L (38-126); ANION GAP 10 (5-19); ASPARTATE AMINO TRANSFERASE 18 U/L (17-59); BILIRUBIN,DIRECT 0.3 mg/dL (0.0-0.4); BILIRUBIN,TOTAL 0.7 mg/dL (0.2-1.3); BLOOD UREA NITROGEN 26 mg/dL (7-20); CALCIUM 9.3 mg/dL (8.4-10.2); CARBON DIOXIDE 26 mmol/L (22-30); CHLORIDE 101 mmol/L (98-107); CREATINE KINASE 81 U/L (55-170); GLUCOSE 191 mg/dL (75-110); PHOSPHORUS 3.4 mg/dL (2.5-4.5); POTASSIUM 4.2 mmol/L (3.6-5.0); SODIUM 136.5 mmol/L (137-145); TOTAL PROTEIN 7.1 g/dL (6.3-8.2)
--- NOTE | 2019-04-23 13:55 | RADIOLOGY REPORT (SQ) ---
EXAM DESCRIPTION: CHEST SINGLE VIEW COMPLETED DATE/TIME: 04/23/2019 1:10 pm REASON FOR STUDY: UNCONTROLLED A FIB COMPARISON: 01/28/2019 TECHNIQUE: Single frontal radiographic view of the chest acquired. NUMBER OF VIEWS: One view. LIMITATIONS: None. FINDINGS: LUNGS AND PLEURA: No pneumothorax. No consolidation or pleural effusion. MEDIASTINUM AND HILAR STRUCTURES: Stable. HEART AND VASCULAR STRUCTURES: Stable. BONES: No acute findings. HARDWARE: None in the chest. OTHER: No other significant finding. IMPRESSION: NO ACUTE FINDINGS. TECHNICAL DOCUMENTATION: JOB ID: [id number] 2010 [employer]- All Rights Reserved Reading location - IP/workstation name: [email or web address]
[2019-04-23 14:00] LABS: CREATINE KINASE MB 0.71 ng/mL (<4.55)
[2019-04-23 14:01] LABS: TROPONIN I < 0.012 ng/mL
[2019-04-23 14:06] LABS: FREE T3 4.14 pg/mL (2.77-5.27); FREE T4 (FREE THYROXINE) 1.01 ng/dL (0.78-2.19)
[2019-04-23 14:07] LABS: INTERNATIONAL RATION (INR) 1.08
[2019-04-23 14:19] LABS: THYROID STIMULATING HORMONE 1.71 uIU/mL (0.47-4.68)
[2019-04-23] MEDS ORDERED: ONDANSETRON HCL INJ/PF 4 MG/2 ML SDV IV PRN (15:08)
[2019-04-23] MEDS ORDERED: TEMAZEPAM 15 MG CAPSULE PO PRN (15:08)
[2019-04-23] MEDS ORDERED: ACETAMINOPHEN 325 MG TABLET PO PRN (15:08)
[2019-04-23] MEDS ORDERED: DEXTROSE 50%-WATER 25 GM/50 ML DISP.SYRIN IV PRN ×2 (15:12)
[2019-04-23] MEDS ORDERED: DILTIAZEM HCL 240 MG CAPSULE.CR PO ONE (15:12)
[2019-04-23] MEDS ORDERED: GLUCAGON,HUMAN RECOMB 1 MG INJ IM PRN (15:12)
[2019-04-23] MEDS ORDERED: DEXTROSE 40% GEL 15 GM TUBE PO PRN ×2 (15:12)
--- NOTE | 2019-04-23 15:22 | PDOC H&P ---
History of Present Illness Admission Date/PCP: [facility] History of Present Illness: CHASITY ZEE is a 58 year old black male patient with past medical history of obesity, hypertension, hyperlipidemia, type 2 diabetes mellitus presented via EMS from his primary care physician [facility] the [facility] when he was found to be in atrial fibrillation with rapid ventricular rate of 180. She does not have any history of atrial fibrillation or other rhythm disorder in the past. Patient denies any fever, chills, cough, chest pain, nausea, vomiting, diarrhea or abdominal pain. Does not have any urinary complaints. His blood work shows mild elevated creatinine and his TSH is normal. CT of the chest ruled out pulmonary embolism. Past Medical History Cardiac Medical History: Reports: Hyperlipidema, Hypertension Denies: Coronary Artery Disease, Myocardial Infarction Pulmonary Medical History: Reports: Pneumonia Denies: Asthma, Chronic Obstructive Pulmonary Disease (COPD) Endocrine Medical History: Reports: Diabetes Mellitus Type 2 Past Surgical History Past Surgical History: Reports: Orthopedic Surgery - Right knee Social History Smoking Status: Never Smoker - Advance Directive Resuscitation Status: Full Code Family History Family History: None, Reviewed & Not Pertinent Parental Family History Reviewed: Yes Children Family History Reviewed: Yes Sibling(s) Family History Reviewed.: Yes Medication/Allergy Home Medications: Acetaminophen with Codeine [Tylenol with Codeine #3 Tablet] 1 tab PO Q4 PRN #30 tab 02/01/14 Azithromycin [Zithromax 250 mg Tablet] 250 mg PO ASDIR PRN #6 tablet 02/01/14 Amlodipine Besylate [Norvasc 10 mg Tablet] 10 mg PO DAILY #10 tablet 12/27/17 Amlodipine Bes/Olmesartan Med [Melisa 10-40 mg Tablet] 1 each PO DAILY #30 tablet 04/13/18 Metformin HCl [Glucophage 500 mg Tablet] 500 mg PO BID #60 tablet 04/13/18 Azithromycin [Zithromax 250 mg Tablet] 250 mg PO ASDIR PRN #6 tablet 01/28/19 Allergies/Adverse Reactions: lisinopril [Lisinopril] Allergy (Verified 01/28/19 08:59) Review of Systems Constitutional: ABSENT: chills, fever(s), headache(s), weight gain, weight loss Eyes: ABSENT: visual disturbances Ears: ABSENT: hearing changes Cardiovascular: PRESENT: palpitations Respiratory: ABSENT: cough, hemoptysis Gastrointestinal: ABSENT: abdominal pain, constipation, diarrhea, hematemesis, hematochezia, nausea, vomiting Genitourinary: ABSENT: dysuria, hematuria Musculoskeletal: ABSENT: joint swelling Integumentary: ABSENT: rash, wounds Neurological: ABSENT: abnormal gait, abnormal speech, confusion, dizziness, focal weakness, syncope Psychiatric: ABSENT: anxiety, depression, homidical ideation, suicidal ideation Endocrine: ABSENT: cold intolerance, heat intolerance, polydipsia, polyuria Hematologic/Lymphatic: ABSENT: easy bleeding, easy bruising Physical Exam Vital Signs: Temp Pulse Resp BP Pulse Ox 97.8 F 23 H 87/56 L 97 04/23/19 12:28 04/23/19 14:53 04/23/19 14:41 04/23/19 14:53 Intake & Output 04/22/19 04/23/19 04/24/19 06:59 06:59 06:59 Intake Total 2109 Balance 2109 Weight 116.3 kg General appearance: PRESENT: no acute distress, obese Head exam: PRESENT: atraumatic Eye exam: PRESENT: conjunctiva pink Mouth exam: PRESENT: moist Neck exam: ABSENT: carotid bruit, JVD, lymphadenopathy, thyromegaly Respiratory exam: PRESENT: clear to auscultation lorena. ABSENT: rales, rhonchi, wheezes Cardiovascular exam: PRESENT: irregular rhythm, tachycardia GI/Abdominal exam: PRESENT: normal bowel sounds, soft. ABSENT: distended, guarding, mass, organolmegaly, rebound, tenderness Neurological exam: PRESENT: alert, awake, oriented to person, oriented to place, oriented to time, oriented to situation Results Laboratory Results: 04/23/19 12:38 04/23/19 12:38 04/23/19 04/23/19 04/23/19 12:38 12:38 12:38 WBC 7.8 RBC 4.62 Hgb 13.7 Hct 40.5 MCV 88 MCH 29.6 MCHC 33.8 RDW 15.3 H Plt Count 312 Seg Neutrophils % 45.8 Lymphocytes % 42.1 Monocytes % 9.8 Eosinophils % 1.4 Basophils % 0.9 Absolute Neutrophils 3.6 Absolute Lymphocytes 3.3 Absolute Monocytes 0.8 Absolute Eosinophils 0.1 Absolute Basophils 0.1 Sodium 136.5 L Potassium 4.2 Chloride 101 Carbon Dioxide 26 Anion Gap 10 BUN 26 H Creatinine 1.33 H Est GFR ( Amer) > 60 Est GFR (Non-Af Amer) 55 L Glucose 191 H Calcium 9.3 Phosphorus 3.4 Magnesium 1.5 L Total Bilirubin 0.7 AST 18 ALT 20 L Alkaline Phosphatase 54 Total Protein 7.1 Albumin 3.7 TSH 1.71 Free T4 1.01 Free T3 pg/mL 4.14 04/23/19 04/23/19 12:38 12:38 Creatine Kinase 81 CK-MB (CK-2) 0.71 Troponin I < 0.012 Impressions: Chest X-Ray 04/23/19 00:00 IMPRESSION: NO ACUTE FINDINGS. Assessment and Plan - Diagnosis (1) Onset A. fib with RVR Is this a current diagnosis for this admission?: Yes Plan: Patient got 2 doses of bolus of Cardizem to dose of digoxin and now he is on Cardizem drip but still he is tachycardic in the range of 140 1252. Patient has has been on Cardene drip and he will get 2.5 mg of metoprolol IV every 2 hours. (2) Acute kidney injury Is this a current diagnosis for this admission?: Yes Plan: We will cautiously hydrate him and will avoid nephrotoxic agents. We will monitor his renal function test. (3) Obesity (BMI 30-39.9) Is this a current diagnosis for this admission?: Yes Plan: Patient counseled and encouraged to do lifestyle modification. (4) Hypertension Qualifiers: Hypertension type: essential hypertension Qualified Code(s): I10 - Lucy yao (primary) hypertension Is this a current diagnosis for this admission?: Yes Plan: I will review his medication and adjust it accordingly. (5) Type 2 diabetes mellitus Is this a current diagnosis for this admission?: Yes Plan: We will continue his home medications and check his hemoglobin A1c status. (6) Hyperlipidemia Qualifiers: Hyperlipidemia type: unspecified Qualified Code(s): E78.5 - Hyperlipidemia, unspecified Is this a current diagnosis for this admission?: Yes Plan: Continue his home medication. - Inpatient Certification Medical Necessity: Need Close Monitoring Due to Risk of Patient Decompensation, Need For IV Fluids
[2019-04-23] MEDS: NORMAL SALINE 1000 ML 1,000 ML IV PRN (16:21)
[2019-04-23] MEDS: ENOXAPARIN SODIUM INJ 40 MG/0.4 ML DISP.SYRIN SUBCUT SCH (16:22)
[2019-04-23] MEDS: INSULIN LISPRO 100 UNIT/ML 3 ML VIAL SUBCUT SCH ×2 (18:35→22:57)
[2019-04-23] MEDS: DOCUSATE SODIUM 100 MG/10 ML UDC PO SCH (19:41)
--- NOTE | 2019-04-23 20:26 | EKG REPORT ---
SEVERITY:- ABNORMAL ECG - ATRIAL FIBRILLATION WITH RAPID V-RATE NONSPECIFIC T ABNORMALITIES, INFERIOR LEADS : Confirmed by: Connor Hua 23-Apr-2019 20:25:31
[2019-04-23] MEDS: FAMOTIDINE 20 MG TABLET PO SCH (22:57)
[2019-04-24] MEDS: METOPROLOL TARTRATE PF/INJ 5 MG/5 ML SDV IV PRN ×2 (00:37→07:32)
[2019-04-24] MEDS: NORMAL SALINE 1000 ML 1,000 ML IV PRN (02:44)
[2019-04-24] MEDS: DILTIAZEM HCL/D5W 125 MG/125 ML RTUINJ IV PRN ×3 (02:45→20:03)
[2019-04-24 05:43] LABS: ANION GAP 10 (5-19); BLOOD UREA NITROGEN 17 mg/dL (7-20); CALCIUM 8.5 mg/dL (8.4-10.2); CARBON DIOXIDE 21 mmol/L (22-30); CHLORIDE 105 mmol/L (98-107); CHOLESTEROL 99.23 mg/dL (0-200); GLUCOSE 137 mg/dL (75-110); SODIUM 135.6 mmol/L (137-145); TRIGLYCERIDES 122 mg/dL (<150)
[2019-04-24 05:54] LABS: DIRECT LDL 53 mg/dL (<100)
[2019-04-24] MEDS: INSULIN LISPRO 100 UNIT/ML 3 ML VIAL SUBCUT SCH ×4 (08:32→21:48)
[2019-04-24] MEDS ORDERED: DILTIAZEM HCL 240 MG CAPSULE.CR PO SCH (10:00)
[2019-04-24] MEDS: ASPIRIN 81 MG TABLET, CHEWABLE PO SCH (10:03)
[2019-04-24] MEDS: DOCUSATE SODIUM 100 MG/10 ML UDC PO SCH ×2 (10:04→17:12)
[2019-04-24] MEDS: FAMOTIDINE 20 MG TABLET PO SCH ×2 (10:04→21:09)
[2019-04-24] MEDS: ENOXAPARIN SODIUM INJ 40 MG/0.4 ML DISP.SYRIN SUBCUT SCH (10:04)
[2019-04-24] MEDS: DILTIAZEM HCL 60 MG TABLET PO SCH ×3 (11:06→23:16)
--- NOTE | 2019-04-24 12:52 | PDOC PROGRESS REPORT ---
Subjective Progress Note for:: 04/24/19 Subjective:: CHASITY ZEE is a 58 year old black male patient with past medical history of obesity, hypertension, hyperlipidemia, type 2 diabetes mellitus presented via EMS from his primary care physician office at the [facility] when he was found to be in atrial fibrillation with rapid ventricular rate of 180. She does not have any history of atrial fibrillation or other rhythm disorder in the past. Patient denies any fever, chills, cough, chest pain, nausea, vomiting, diarrhea or abdominal pain. Does not have any urinary complaints. His blood work shows mild elevated creatinine and his TSH is normal. CT of the chest ruled out pulmonary embolism. 04/24/2019. No acute events overnight. Patient has resting in bed comfortably in no apparent distress, he has been on Cardizem drip and receiving as needed metoprolol. Patient denies any previous episodes, denies any IV drug abuse, herbal medication, any cardiac history. Denies any fever, chills, nausea, vomiting, diarrhea, constipation or any urinary symptoms. Reason For Visit: NEW ONSET A. FIB Physical Exam Vital Signs: Temp Pulse Resp BP Pulse Ox 98.3 F 30 L 18 113/81 95 04/24/19 10:44 04/24/19 10:44 04/24/19 10:44 04/24/19 10:44 04/24/19 10:44 Intake & Output 04/23/19 04/24/19 04/25/19 06:59 06:59 06:59 Intake Total 3941 125 Output Total 1250 Balance 2691 125 Weight 120.3 kg General appearance: PRESENT: no acute distress, obese, well-developed, well- nourished Head exam: PRESENT: atraumatic, normocephalic Eye exam: PRESENT: conjunctiva pink, EOMI, PERRLA. ABSENT: scleral icterus Ear exam: PRESENT: normal external ear exam Mouth exam: PRESENT: moist, tongue midline Neck exam: ABSENT: carotid bruit, JVD, lymphadenopathy, thyromegaly Respiratory exam: PRESENT: clear to auscultation lorena. ABSENT: rales, rhonchi, wheezes Cardiovascular exam: PRESENT: irregular rhythm. ABSENT: diastolic murmur, rubs, systolic murmur Pulses: PRESENT: normal dorsalis pedis pul Vascular exam: PRESENT: normal capillary refill GI/Abdominal exam: PRESENT: normal bowel sounds, soft. ABSENT: distended, g uarding, mass, organolmegaly, rebound, tenderness Rectal exam: PRESENT: deferred Extremities exam: PRESENT: full ROM. ABSENT: calf tenderness, clubbing, pedal edema Neurological exam: PRESENT: alert, awake, oriented to person, oriented to place, oriented to time, oriented to situation, CN II-XII grossly intact. ABSENT: mo tor sensory deficit Psychiatric exam: PRESENT: appropriate affect, normal mood. ABSENT: homicidal ideation, suicidal ideation Skin exam: PRESENT: dry, intact, warm. ABSENT: cyanosis, rash Results Laboratory Results: 04/23/19 12:38 04/24/19 04:46 04/23/19 04/23/19 04/23/19 12:38 12:38 12:38 WBC 7.8 RBC 4.62 Hgb 13.7 Hct 40.5 MCV 88 MCH 29.6 MCHC 33.8 RDW 15.3 H Plt Count 312 Seg Neutrophils % 45.8 Lymphocytes % 42.1 Monocytes % 9.8 Eosinophils % 1.4 Basophils % 0.9 Absolute Neutrophils 3.6 Absolute Lymphocytes 3.3 Absolute Monocytes 0.8 Absolute Eosinophils 0.1 Absolute Basophils 0.1 Sodium 136.5 L Potassium 4.2 Chloride 101 Carbon Dioxide 26 Anion Gap 10 BUN 26 H Creatinine 1.33 H Est GFR ( Amer) > 60 Est GFR (Non-Af Amer) 55 L Glucose 191 H Calcium 9.3 Phosphorus 3.4 Magnesium 1.5 L Total Bilirubin 0.7 AST 18 ALT 20 L Alkaline Phosphatase 54 Total Protein 7.1 Albumin 3.7 Triglycerides Cholesterol LDL Cholesterol Direct VLDL Cholesterol HDL Cholesterol TSH 1.71 Free T4 1.01 Free T3 pg/mL 4.14 04/24/19 04:46 WBC RBC Hgb Hct MCV MCH MCHC RDW Plt Count Seg Neutrophils % Lymphocytes % Monocytes % Eosinophils % Basophils % Absolute Neutrophils Absolute Lymphocytes Absolute Monocytes Absolute Eosinophils Absolute Basophils Sodium 135.6 L Potassium 4.0 Chloride 105 Carbon Dioxide 21 L Anion Gap 10 BUN 17 Creatinine 1.00 Est GFR ( Amer) > 60 Est GFR (Non-Af Amer) > 60 Glucose 137 H Calcium 8.5 Phosphorus Magnesium Total Bilirubin AST ALT Alkaline Phosphatase Total Protein Albumin Triglycerides 122 Cholesterol 99.23 LDL Cholesterol Direct 53 VLDL Cholesterol 24.0 HDL Cholesterol 31 L TSH Free T4 Free T3 pg/mL 04/23/19 04/23/19 04/24/19 12:38 12:38 04:46 Creatine Kinase 81 CK-MB (CK-2) 0.71 Troponin I < 0.012 NT-Pro-B Natriuret Pep 923 H Impressions: Chest X-Ray 04/23/19 00:00 IMPRESSION: NO ACUTE FINDINGS. Assessment and Plan - Diagnosis (1) Atrial fibrillation with RVR Is this a current diagnosis for this admission?: Yes Plan: CHADs Score 2 Currently on Cardizem drip to be transitioned to p.o. Cardizem and likely beta- blockers. Continue aspirin, statin and NOACs. Cardiology following. Recommendation will be noted. (2) Hyperlipidemia Qualifiers: Hyperlipidemia type: unspecified Qualified Code(s): E78.5 - Hyperlipidemia, unspecified Is this a current diagnosis for this admission?: Yes Plan: Continue statins. LFTs WNL. (3) Hypertension Qualifiers: Hypertension type: essential hypertension Qualified Code(s): I10 - Essential (primary) hypertension Is this a current diagnosis for this admission?: Yes Plan: Normotensive. Euvolemic. Currently on Cardizem drip. We will switch to p.o. beta-blockers and ARB once appropriate. (4) Obesity (BMI 30-39.9) Is this a current diagnosis for this admission?: Yes Plan: Diet and lifestyle modifications recommended. (5) Type 2 diabetes mellitus Qualifiers: Diabetes mellitus terminal operator insulin use: without terminal operator use Diabetes mellitus complication status: without complication Qualified Code(s): E11.9 - Type 2 diabetes mellitus without complications Is this a current diagnosis for this admission?: Yes Plan: Well controlled. A1c 7.9%. Diabetic diet, sliding scale insulin, long-acting insulin, pre-meal insulin, Accu-Chek, hypoglycemia protocol.
[2019-04-24] MEDS ORDERED: DIGOXIN INJ 0.5 MG/2 ML AMPULE IV ONE (16:00)
--- NOTE | 2019-04-24 18:22 | XCELERA REPORT ---
[address] [address] Transthoracic Echocardiogram Report Name: CHASITY ZEE Age: 58 yrs Gender: Male : 1960 Patient Status: Inpatient Patient Location: [address] [place] [address] Study Date: 04/24/2019 09:25 AM History: Atrial fibrillation, Systemic hypertension Height: 69 in Weight: 265 lb BSA: 2.3 m2 Procedure: A two-dimensional transthoracic echocardiogram with color flow and Doppler was performed. The study was technically limited with all images being suboptimal in quality. Reason For Study: new onset a-fib Previous Evaluation: No previous studies were available. History: Diabetes. HTN. Other: Atrial fibtrillation. Ordering Physician: BOO DA SILVA Performed By: Trang Robledo Interpretation Summary The study was technically limited with all images being suboptimal in quality. The left ventricular ejection fraction is normal. LV EF is 55-60% The right ventricular systolic function is normal. There is a trace to mild amount of mitral regurgitation There is no aortic valve stenosis There is a trace amount of tricuspid regurgitation Right ventricular systolic pressure is estimated to be within upper limit of normal. There is no pericardial effusion. MMode/2D Measurements & Calculations IVSd: 0.98 cm LVIDd: 4.1 cm FS: 24.2 % Ao root diam: LVIDs: 3.1 cm EDV(Teich): 3.5 cm LVPWd: 1.1 cm 74.7 ml Ao root area: ESV(Teich): 9.5 cm2 38.4 ml EF(Teich): 48.6 % EDV(MOD-sp4): SV(MOD-sp4): 107.7 ml 60.5 ml ESV(MOD-sp4): 47.1 ml EF(MOD-sp4): 56.2 % Doppler Measurements & Calculations MV E max mala: MV dec slope: Ao V2 max: LV V1 max P.7 cm/sec 118.4 cm/sec 2.9 mmHg MV A max mala: 796.7 cm/sec2 Ao max PG: LV V1 max: 68.1 cm/sec MV dec time: 0.11 sec5.6 mmHg 84.7 cm/sec MV E/A: 1.2 LV dP/dt: 1860 mmHg/s PA V2 max: TR max mala: 91.3 cm/sec 210.2 cm/sec PA max P.3 mmHg TR max P.9 mmHg Left Ventricle The left ventricle is normal in size, thickness and function. There is mild concentric left ventricular hypertrophy. The left ventricular ejection fraction is normal. LV EF is 55-60%. LV diastolic function not assessed. No regional wall motion abnormalities noted. Right Ventricle The right ventricle is grossly normal size. The right ventricular systolic function is normal. Atria The right atrium is normal. The left atrium is mildly dilated. Mitral Valve The mitral valve is normal in structure and function. There is no evidence of mitral valve prolapse. There is no mitral valve stenosis. There is a trace to mild amount of mitral regurgitation. Aortic Valve The aortic valve is normal in structure and functions normally. The aortic valve is trileaflet. The aortic valve opens well. There is no aortic valve stenosis. No aortic regurgitation is present. Tricuspid Valve The tricuspid valve is normal in structure and function. There is no tricuspid stenosis. There is a trace amount of tricuspid regurgitation. Right ventricular systolic pressure is estimated to be within upper limit of normal. Pulmonic Valve The pulmonic valve is normal in structure and function. There is no pulmonic valvular stenosis. There is a trace amount of pulmonic regurgitation. Great Vessels The aortic root is normal size. The inferior vena cava appeared normal and decreased < 50% with respiration (RAP 10-15 mmHg). Effusions There is no pericardial effusion. : BOO DA SILVA > Boo Da Silva
--- NOTE | 2019-04-24 18:36 | PDOC CONSULTATION ---
Consultation Consult Date: 04/24/19 Provider Consulted: BOO DA SILVA Consult reason:: New onset Atrial fibrillation History of Present Illness Admission Date/PCP: 04/23/19 15:33 [facility] Patient complains of: Dizziness, diaphoresis History of Present Illness: CHASITY ZEE is a 58 year old male 58-year-old male with medical history significant for systemic hypertension and diabetes mellitus who developed abrupt onset dizziness and diaphoresis 2 days ago. EKG was done at the [facility] and patient was found to be in atrial ablation with rapid ventricular response. Subsequently he was brought over to [facility] and that was admitted to the hospital for rate control measures. No previous history of atrial fibrillation or any arrhythmia. No history of syncope, chest pain or palpitations prior to this. Patient does not carry a diagnosis of sleep apnea in fact a work-up for this was negative. Presently he is resting in bed comfortably. He does not admit to any chest pain dyspnea or palpitations. Since admission he has been on IV rate control medicines such as diltiazem on a continuous infusion with pushes of IV metoprolol as well as digoxin IV pushes. Past Medical History Cardiac Medical History: Reports: Hyperlipidema, Hypertension Denies: Coronary Artery Disease, Myocardial Infarction Pulmonary Medical History: Reports: Pneumonia Denies: Asthma, Chronic Obstructive Pulmonary Disease (COPD) Endocrine Medical History: Reports: Diabetes Mellitus Type 2 Past Surgical History Past Surgical History: Reports: Orthopedic Surgery - Right knee Social History Smoking Status: Never Smoker Frequency of Alcohol Use: Rare Hx Recreational Drug Use: No Drugs: None Hx Prescription Drug Abuse: No - Advance Directive Resuscitation Status: Full Code Family History Family History: None, Reviewed & Not Pertinent Parental Family History Reviewed: No Children Family History Reviewed: NA Sibling(s) Family History Reviewed.: NA Medication/Allergy Home Medications: Amlodipine Besylate [Norvasc 10 mg Tablet] 10 mg PO DAILY 04/23/19 Atorvastatin Calcium [Lipitor 20 mg Tablet] 10 mg PO QHS 04/23/19 Chlorthalidone [Hygroton 25 mg Tablet] 25 mg PO DAILY 04/23/19 Losartan Potassium [Cozaar 100 mg Tablet] 100 mg PO DAILY 04/23/19 Metformin HCl [Metformin HCl ER] 1,000 mg PO BID 04/23/19 Allergies/Adverse Reactions: lisinopril [Lisinopril] Allergy (Verified 01/28/19 08:59) Review of Systems Constitutional: PRESENT: as per HPI Ears: PRESENT: as per HPI Cardiovascular: PRESENT: as per HPI, palpitations Respiratory: PRESENT: as per HPI Neurological: PRESENT: as per HPI Physical Exam Vital Signs: Temp Pulse Resp BP Pulse Ox 98.3 F 109 H 18 118/90 H 95 04/24/19 10:44 04/24/19 17:00 04/24/19 10:44 04/24/19 17:00 04/24/19 10:44 Intake & Output 04/23/19 04/24/19 04/25/19 06:59 06:59 06:59 Intake Total 3941 2480 Output Total 1250 1600 Balance 2691 880 Weight 120.3 kg General appearance: PRESENT: no acute distress Head exam: PRESENT: atraumatic, normocephalic Eye exam: PRESENT: EOMI Mouth exam: PRESENT: dry mucosa, moist Neck exam: PRESENT: full ROM, JVD Respiratory exam: PRESENT: unlabored Cardiovascular exam: PRESENT: irregular rhythm, tachycardia GI/Abdominal exam: PRESENT: soft Rectal exam: PRESENT: deferred Extremities exam: PRESENT: full ROM Musculoskeletal exam: PRESENT: normal inspection Neurological exam: PRESENT: alert, altered, awake, oriented to person, oriented to place, oriented to time, oriented to situation Psychiatric exam: PRESENT: appropriate affect Results Laboratory Results: 04/23/19 12:38 04/24/19 04:46 04/24/19 04:46 Sodium 135.6 L Potassium 4.0 Chloride 105 Carbon Dioxide 21 L Anion Gap 10 BUN 17 Creatinine 1.00 Est GFR ( Amer) > 60 Est GFR (Non-Af Amer) > 60 Glucose 137 H Calcium 8.5 Triglycerides 122 Cholesterol 99.23 LDL Cholesterol Direct 53 VLDL Cholesterol 24.0 HDL Cholesterol 31 L 04/23/19 04/23/19 04/24/19 12:38 12:38 04:46 Creatine Kinase 81 CK-MB (CK-2) 0.71 Troponin I < 0.012 NT-Pro-B Natriuret Pep 923 H Impressions: Chest X-Ray 04/23/19 00:00 IMPRESSION: NO ACUTE FINDINGS. Assessment & Plan - Diagnosis (1) Atrial fibrillation with RVR Is this a current diagnosis for this admission?: Yes Plan: Presently patient continues to be in atrial fibrillation with rapid ventricular response. This is a new diagnosis for this patient. Review of transthoracic echocardiogram shows preserved ejection fraction and no significant valve abnormality. There is evidence of mild left ventricular hypertrophy as well as mild left atrial enlargement suggesting long-standing systemic hypertension. Would recommend full dose systemic anticoagulation with weight-based enoxaparin dosing or 1 of the novel agent such as apixaban or rivaroxaban. Presently his dose of enoxaparin is subtherapeutic. Continue rate control measures with the use of intravenous diltiazem together with IV metoprolol with plans to transition to oral agents. If rate control measures are difficult patient may require transesophageal echocardiogram to exclude left atrial thrombus and to pursue direct-current cardioversion. This can be arranged based on his clinical course over the next 24 to 36 hours. I met with the patient and discussed care plan. Also discussed this with the nurse and covering physician. All questions answered. (2) Hypertension Qualifiers: Hypertension type: essential hypertension Qualified Code(s): I10 - Essential (primary) hypertension Is this a current diagnosis for this admission?: Yes Plan: The present situation where additional medicines are needed for rate control it may be reasonable to omit losartan as well as amlodipine so we have room for other medication such as diltiazem and metoprolol. (3) Type 2 diabetes mellitus Qualifiers: Diabetes mellitus health and safety representative insulin use: without health and safety representative use Diabetes mellitus complication status: without complication Qualified Code(s): E11.9 - Type 2 diabetes mellitus without complications Is this a current diagnosis for this admission?: Yes Plan: Continue present medications for diabetes mellitus.
[2019-04-24] MEDS: APIXABAN 5 MG TABLET PO SCH (18:52)
[2019-04-24 19:59] LABS: URINE AMPHETAMINES SCREEN NEGATIVE; URINE BARBITURATES SCREEN NEGATIVE; URINE BENZODIAZEPINES SCREEN NEGATIVE; URINE COCAINE SCREEN NEGATIVE; URINE MARIJUANA (THC) SCREEN NEGATIVE; URINE METHADONE SCREEN NEGATIVE; URINE PHENCYCLIDINE SCREEN NEGATIVE
[2019-04-24] MEDS: ATORVASTATIN CALCIUM 20 MG TABLET PO SCH (21:09)
[2019-04-24] MEDS ORDERED: ATORVASTATIN CALCIUM 20 MG TABLET PO SCH (22:00)
[2019-04-24] MEDS ORDERED: ATORVASTATIN CALCIUM 10 MG TABLET PO SCH ×2 (22:00)
[2019-04-25] MEDS: METOPROLOL TARTRATE PF/INJ 5 MG/5 ML SDV IV PRN ×3 (00:56→23:02)
[2019-04-25] MEDS: DILTIAZEM HCL 60 MG TABLET PO SCH (05:43)
[2019-04-25] MEDS: DILTIAZEM HCL/D5W 125 MG/125 ML RTUINJ IV PRN (05:44)
[2019-04-25 06:27] LABS: ANION GAP 9 (5-19); BLOOD UREA NITROGEN 11 mg/dL (7-20); CALCIUM 8.9 mg/dL (8.4-10.2); CARBON DIOXIDE 23 mmol/L (22-30); CHLORIDE 104 mmol/L (98-107); GLUCOSE 190 mg/dL (75-110); POTASSIUM 4.4 mmol/L (3.6-5.0); SODIUM 135.6 mmol/L (137-145)
[2019-04-25] MEDS ORDERED: METOPROLOL TARTRATE PF/INJ 5 MG/5 ML SDV IV SCH (06:45)
[2019-04-25] MEDS ORDERED: ONDANSETRON HCL INJ/PF 4 MG/2 ML SDV IV PRN (08:00)
[2019-04-25] MEDS: INSULIN LISPRO 100 UNIT/ML 3 ML VIAL SUBCUT SCH ×4 (08:53→22:10)
[2019-04-25] MEDS: ASPIRIN 81 MG TABLET, CHEWABLE PO SCH (09:14)
[2019-04-25] MEDS: DIGOXIN 0.125 MG TABLET PO SCH (09:14)
[2019-04-25] MEDS: DOCUSATE SODIUM 100 MG CAPSULE PO SCH ×2 (09:14→17:05)
[2019-04-25] MEDS: FAMOTIDINE 20 MG TABLET PO SCH ×2 (09:14→22:11)
[2019-04-25] MEDS: APIXABAN 5 MG TABLET PO SCH ×2 (09:14→17:05)
[2019-04-25] MEDS: METOPROLOL SUCCINATE 50 MG TAB.SR.24H PO SCH (09:14)
--- NOTE | 2019-04-25 10:10 | PDOC PROGRESS REPORT ---
Subjective Progress Note for:: 04/25/19 Subjective:: CHASITY ZEE is a 58 year old black male patient with past medical history of obesity, hypertension, hyperlipidemia, type 2 diabetes mellitus presented via EMS from his primary care physician office at the [place] when he was found to be in atrial fibrillation with rapid ventricular rate of 180. She does not have any history of atrial fibrillation or other rhythm disorder in the past. Patient denies any fever, chills, cough, chest pain, nausea, vomiting, diarrhea or abdominal pain. Does not have any urinary complaints. His blood work shows mild elevated creatinine and his TSH is normal. CT of the chest ruled out pulmonary embolism. 04/24/2019. No acute events overnight. Patient has resting in bed comfortably in no apparent distress, he has been on Cardizem drip and receiving as needed metoprolol. Patient denies any previous episodes, denies any IV drug abuse, herbal medication, any cardiac history. Denies any fever, chills, nausea, vomiting, diarrhea, constipation or any urinary symptoms. 04/25/2019. No acute events overnight. Patient is very pleasant and cooperative with physical examination. Denies any shortness of breath, dizziness, chest pain, nausea, vomiting, diarrhea, constipation or any urinary symptoms. Still remains on Cardizem drip. A. fib uncontrolled. Reason For Visit: NEW ONSET A. FIB Physical Exam Vital Signs: Temp Pulse Resp BP Pulse Ox 97.3 F 110 H 18 120/87 H 92 04/25/19 07:50 04/25/19 09:00 04/25/19 07:50 04/25/19 09:00 04/25/19 07:50 Intake & Output 04/24/19 04/25/19 04/26/19 06:59 06:59 06:59 Intake Total 3941 3230 Output Total 1250 2650 Balance 2691 580 Weight 120.3 kg 119.2 kg General appearance: PRESENT: no acute distress, obese, well-developed, well- nourished Head exam: PRESENT: atraumatic, normocephalic Eye exam: PRESENT: conjunctiva pink, EOMI, PERRLA. ABSENT: scleral icterus Ear exam: PRESENT: normal external ear exam Mouth exam: PRESENT: moist, tongue midline Neck exam: ABSENT: carotid bruit, JVD, lymphadenopathy, thyromegaly Respiratory exam: PRESENT: clear to auscultation lorena. ABSENT: rales, rhonchi, wheezes Cardiovascular exam: PRESENT: irregular rhythm, tachycardia. ABSENT: diastolic murmur, rubs, systolic murmur Pulses: PRESENT: normal dorsalis pedis pul Vascular exam: PRESENT: normal capillary refill GI/Abdominal exam: PRESENT: normal bowel sounds, soft. ABSENT: distended, guarding, mass, organolmegaly, rebound, tenderness Rectal exam: PRESENT: deferred Extremities exam: PRESENT: full ROM. ABSENT: calf tenderness, clubbing, pedal edema Neurological exam: PRESENT: alert, awake, oriented to person, oriented to place, oriented to time, oriented to situation, CN II-XII grossly intact. ABSENT: motor sensory deficit Psychiatric exam: PRESENT: appropriate affect, normal mood. ABSENT: homicidal ideation, suicidal ideation Skin exam: PRESENT: dry, intact, warm. ABSENT: cyanosis, rash Results Laboratory Results: 04/23/19 12:38 04/25/19 05:42 04/25/19 05:42 Sodium 135.6 L Potassium 4.4 Chloride 104 Carbon Dioxide 23 Anion Gap 9 BUN 11 Creatinine 1.00 Est GFR ( Amer) > 60 Est GFR (Non-Af Amer) > 60 Glucose 190 H Calcium 8.9 04/23/19 04/23/19 04/24/19 12:38 12:38 04:46 Creatine Kinase 81 CK-MB (CK-2) 0.71 Troponin I < 0.012 NT-Pro-B Natriuret Pep 923 H Impressions: Chest X-Ray 04/23/19 00:00 IMPRESSION: NO ACUTE FINDINGS. Assessment and Plan - Diagnosis (1) Atrial fibrillation with RVR Is this a current diagnosis for this admission?: Yes Plan: Not controlled. CHADs Score 2 Currently on Cardizem drip maxed out. Continue p.o. Cardizem and metoprolol. Continue aspirin, statin and NOACs. 04/24/2019. 2D echo LVEF 55-60%. Cardiology following. Plan is to monitor patient for another 24 hours if not rate controlled will be transferred for possible cardioversion to a tertiary facility. (2) Hyperlipidemia Qualifiers: Hyperlipidemia type: unspecified Qualified Code(s): E78.5 - Hyperlipidemia, unspecified Is this a current diagnosis for this admission?: Yes Plan: Continue statins. LFTs WNL. (3) Hypertension Qualifiers: Hypertension type: essential hypertension Qualified Code(s): I10 - Essential (primary) hypertension Is this a current diagnosis for this admission?: Yes Plan: Normotensive. Euvolemic. Currently on Cardizem drip, p.o. Cardizem and beta-blockers. Patient could benefit from ARB's due to underlying diabetes. We will add low- dose ARB once appropriate. (4) Obesity (BMI 30-39.9) Is this a current diagnosis for this admission?: Yes Plan: Diet and lifestyle modifications recommended. (5) Type 2 diabetes mellitus Qualifiers: Diabetes mellitus usp insulin use: without long term care pharmacist use Diabetes mellitus complication status: without complication Qualified Code(s): E11.9 - Type 2 diabetes mellitus without complications Is this a current diagnosis for this admission?: Yes Plan: Well controlled. A1c 7.9%. Diabetic diet, sliding scale insulin, long-acting insulin, pre-meal insulin, Accu-Chek, hypoglycemia protocol.
[2019-04-25] MEDS: DILTIAZEM HCL 90 MG TABLET PO SCH ×2 (11:48→17:05)
[2019-04-25] MEDS: ATORVASTATIN CALCIUM 20 MG TABLET PO SCH (22:11)
[2019-04-26] MEDS: DILTIAZEM HCL 90 MG TABLET PO SCH ×4 (00:42→17:07)
[2019-04-26] MEDS: METOPROLOL TARTRATE PF/INJ 5 MG/5 ML SDV IV PRN (03:16)
[2019-04-26 05:23] LABS: ANION GAP 11 (5-19); BLOOD UREA NITROGEN 11 mg/dL (7-20); CARBON DIOXIDE 23 mmol/L (22-30); CHLORIDE 102 mmol/L (98-107); GLUCOSE 175 mg/dL (75-110); POTASSIUM 4.1 mmol/L (3.6-5.0); SODIUM 135.7 mmol/L (137-145)
[2019-04-26] MEDS: INSULIN LISPRO 100 UNIT/ML 3 ML VIAL SUBCUT SCH ×3 (08:24→17:07)
[2019-04-26] MEDS: APIXABAN 5 MG TABLET PO SCH ×2 (09:13→17:07)
[2019-04-26] MEDS: ASPIRIN 81 MG TABLET, CHEWABLE PO SCH (09:14)
[2019-04-26] MEDS: METOPROLOL SUCCINATE 50 MG TAB.SR.24H PO SCH (09:14)
[2019-04-26] MEDS: DIGOXIN 0.125 MG TABLET PO SCH (09:14)
[2019-04-26] MEDS: DOCUSATE SODIUM 100 MG CAPSULE PO SCH (09:14)
[2019-04-26] MEDS: FAMOTIDINE 20 MG TABLET PO SCH (09:14)
[2019-04-26 16:00] VITALS: BP 129/92
[2019-04-27] MEDS ORDERED: METOPROLOL SUCCINATE 50 MG TAB.SR.24H PO SCH (10:00)
--- NOTE | 2019-04-29 10:47 | PDOC PROGRESS REPORT ---
Subjective Progress Note for:: 05/23/19 Subjective:: Feels better. No palpitations Reason For Visit: NEW ONSET A. FIB Physical Exam Vital Signs: Temp Pulse Resp BP Pulse Ox 97.6 F 97 16 129/92 H 96 04/26/19 15:57 04/26/19 15:57 04/26/19 15:57 04/26/19 15:57 04/26/19 15:57 General appearance: PRESENT: no acute distress, cooperative Head exam: PRESENT: atraumatic, normocephalic Ear exam: PRESENT: normal external ear exam Respiratory exam: PRESENT: unlabored Cardiovascular exam: PRESENT: irregular rhythm, +S1, +S2 Pulses: PRESENT: normal radial pulses GI/Abdominal exam: PRESENT: soft Rectal exam: PRESENT: deferred Musculoskeletal exam: PRESENT: normal inspection Neurological exam: PRESENT: alert, awake, oriented to person, oriented to place, oriented to time, oriented to situation Skin exam: PRESENT: dry Results Laboratory Results: 04/23/19 12:38 04/26/19 04:01 04/23/19 04/23/19 04/24/19 12:38 12:38 04:46 Creatine Kinase 81 CK-MB (CK-2) 0.71 Troponin I < 0.012 NT-Pro-B Natriuret Pep 923 H Impressions: Chest X-Ray 04/23/19 00:00 IMPRESSION: NO ACUTE FINDINGS. 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 Increase metoprolol succinate to 50 mg oral daily. Increase diltiazem to 90 mg p.o. 4 times daily. Schedule oral digoxin 125 mcg daily. Hopefully this will control the rate. At the time of discharge he can be switched over to Cardizem CD 360 mg daily, metoprolol XL 50 mg daily as well as digoxin 125 mcg daily. Continue systemic anticoagulation with oral agent. We will schedule for [facility] cardioversion once discharged from this hospital. The above care plan was discussed with the patient and all questions were answered.
--- NOTE | 2019-05-01 18:31 | PDOC DISCHARGE SUMMARY ---
General - Admit/Disc Date/PCP Admission Date/Primary Care Provider: 04/23/19 15:[facility] Discharge Date: 04/26/19 - Discharge Diagnosis (1) Atrial fibrillation with RVR Is this a current diagnosis for this admission?: Yes (2) Hyperlipidemia Is this a current diagnosis for this admission?: Yes (3) Hypertension Is this a current diagnosis for this admission?: Yes (4) Obesity (BMI 30-39.9) Is this a current diagnosis for this admission?: Yes (5) Type 2 diabetes mellitus Is this a current diagnosis for this admission?: Yes - Additional Information Resuscitation Status: Full Code Discharge Diet: Cardiac, Diabetic Discharge Activity: Activity As Tolerated, Balance Activity w/Rest Prescriptions: Apixaban [Eliquis 5 mg Tablet] 5 mg PO BID 30 Days #60 tablet Aspirin [Aspirin 81 mg Chewable Tablet] 81 mg PO DAILY 30 Days #30 tab.chew Atorvastatin Calcium [Lipitor 20 mg Tablet] 40 mg PO QHS 30 Days #30 tablet Digoxin [Lanoxin 0.125 mg Tablet] 0.125 mg PO DAILY 30 Days #30 tablet Diltiazem HCl [Cardizem Cd] 360 mg PO DAILY 30 Days #30 cap.er.24h Metoprolol Succinate [Toprol XL 100 mg Tablet] 100 mg PO DAILY 30 Days #30 tab.sr.24h Home Medications: Metformin HCl [Metformin HCl ER] 1,000 mg PO BID 04/23/19 Apixaban [Eliquis 5 mg Tablet] 5 mg PO BID 30 Days #60 tablet 04/26/19 Aspirin [Aspirin 81 mg Chewable Tablet] 81 mg PO DAILY 30 Days #30 tab.chew 04/26/19 Atorvastatin Calcium [Lipitor 20 mg Tablet] 40 mg PO QHS 30 Days #30 tablet 04/26/19 Digoxin [Lanoxin 0.125 mg Tablet] 0.125 mg PO DAILY 30 Days #30 tablet 04/26/19 Diltiazem HCl [Cardizem Cd] 360 mg PO DAILY 30 Days #30 cap.er.24h 04/26/19 Metoprolol Succinate [Toprol XL 100 mg Tablet] 100 mg PO DAILY 30 Days #30 tab. sr.24h 04/26/19 History of Present Illness History of Present Illness: CHASITY ZEE is a 58 year old black male patient with past medical history of obesity, hypertension, hyperlipidemia, type 2 diabetes mellitus presented via EMS from his primary care physician office at the [place] when he was found to be in atrial fibrillation with rapid ventricular rate of 180. She does not have any history of atrial fibrillation or other rhythm disorder in the past. Patient denies any fever, chills, cough, chest pain, nausea, vomiting, diarrhea or abdominal pain. Does not have any urinary complaints. His blood work shows mild elevated creatinine and his TSH is normal. CT of the chest ruled out pulmonary embolism. Hospital Course Hospital Course: (1) Atrial fibrillation with RVR Rate controlled. CHADs Score 2 Initially started on Cardizem drip, digoxin and Lovenox therapeutic dose. Transitioned to p.o. Cardizem, Toprol-XL, apixaban. 04/24/2019. 2D echo LVEF 55-60%. And was asked to follow-up with Dr. Matthieu Jung. Dr. Matthieu Jung called me on the day of discharge stated that I could discharge patient home and he will call him and arrange an appointment at his office. He also mentioned that patient is scheduled for a cardioversion at [facility]. (2) Hyperlipidemia Started on statins. LFTs WNL. Instructed to follow-up with PCP as outpatient. (3) Hypertension Normotensive. Euvolemic. Start on Toprol-XL, Cardizem p.o. Patient could benefit from ARB's due to underlying diabetes. Patient was asked to follow-up with PCP and cardiology for possible addition of ARB. (4) Obesity (BMI 30-39.9) Diet and lifestyle modifications recommended. (5) Type 2 diabetes mellitus Well controlled. A1c 7.9%. Started on diabetic diet, sliding scale insulin, long-acting insulin, pre-meal insulin, Accu-Chek, hypoglycemia protocol. Asked to restart metformin upon discharge. Follow-up with PCP. Physical Exam Vital Signs: Temp Pulse Resp BP Pulse Ox 97.6 F 97 16 129/92 H 96 04/26/19 15:57 04/26/19 15:57 04/26/19 15:57 04/26/19 15:57 04/26/19 15:57 General appearance: PRESENT: no acute distress, well-developed, well-nourished Head exam: PRESENT: atraumatic, normocephalic Eye exam: PRESENT: conjunctiva pink, EOMI, PERRLA. ABSENT: scleral icterus Ear exam: PRESENT: normal external ear exam Mouth exam: PRESENT: moist, tongue midline Neck exam: ABSENT: carotid bruit, JVD, lymphadenopathy, thyromegaly Respiratory exam: PRESENT: clear to auscultation lorena. ABSENT: rales, rhonchi, wheezes Cardiovascular exam: PRESENT: irregular rhythm. ABSENT: diastolic murmur, rubs, systolic murmur Pulses: PRESENT: normal dorsalis pedis pul Vascular exam: PRESENT: normal capillary refill GI/Abdominal exam: PRESENT: normal bowel sounds, soft. ABSENT: distended, guarding, mass, organolmegaly, rebound, tenderness Rectal exam: PRESENT: deferred Extremities exam: PRESENT: full ROM. ABSENT: calf tenderness, clubbing, pedal edema Neurological exam: PRESENT: alert, awake, oriented to person, oriented to place, oriented to time, oriented to situation, CN II-XII grossly intact. ABSENT: motor sensory deficit Psychiatric exam: PRESENT: appropriate affect, normal mood. ABSENT: homicidal ideation, suicidal ideation Skin exam: PRESENT: dry, intact, warm. ABSENT: cyanosis, rash Results Laboratory Results: 04/23/19 12:38 04/26/19 04:01 04/23/19 04/23/19 04/24/19 12:38 12:38 04:46 Creatine Kinase 81 CK-MB (CK-2) 0.71 Troponin I < 0.012 NT-Pro-B Natriuret Pep 923 H Impressions: Chest X-Ray 04/23/19 00:00 IMPRESSION: NO ACUTE FINDINGS. Qualifiers - * PATIENT BEING DISCHARGED WITH ANY OF THE FOLLOWING DIAGNOSIS: No Acute Heart Failure - Is this a Heart Failure Patient?: No
== END 2019-04-26 17:14 | disposition home or self-care (01) | DRG 309 ==
LOC: ER 12:18 → EH 15:33 → 3S 22:00 → 3N 04-25 12:56
PROVIDERS: ADMIT Internal Medicine; ATTEND Internal Medicine
DX: I48.91 Unspecified atrial fibrillation (principal); N17.9 Acute kidney failure, unspecified; I10 Essential (primary) hypertension; E11.9 Type 2 diabetes mellitus without complications; E78.5 Hyperlipidemia, unspecified; E66.9 Obesity, unspecified; Z79.899 Other long term (current) drug therapy; Z79.84 Long term (current) use of oral hypoglycemic drugs; Z88.8 Allergy status to other drugs, medicaments and biological substances; I95.9 Hypotension, unspecified; Z68.36 Body mass index [BMI] 36.0-36.9, adult
CPT/HCPCS: 36415; 71045; 80048; 80053; 80061; 80307; 82550; 82553; 82962; 83036; 83735; 83880; 84100; 84439; 84443; 84481; 84484; 85025; 85610; 93005; 93010; 93306; 96361; 96374; 96375; 99291; J1160; J1650; J1815; J3475; J3490; J7030

== ENCOUNTER 2020-01-10 18:50 | Emergency (ER) | payer OTHER ==
--- NOTE | 2020-01-10 19:09 | ER Document Report ---
ED Medical Screen (RME) - General Chief Complaint: Shortness Of Breath Stated Complaint: SHORTNESS OF BREATH Time Seen by Provider: 01/10/20 19:02 Primary Care Provider: CHRISTINA SAUER [Primary Care Provider] - Follow up as needed Mode of Arrival: Ambulatory Information source: Patient Notes: Patient is a 59-year-old male with history of atrial fibrillation presenting to the emergency department chief complaint of shortness of breath. Patient reports shortness of breath with movement and activity. He denies any history of this, states that he is usually pretty active and works full-time. Denies any history of CHF. Denies any chest pain. Lung sounds clear and equal bilaterally. Mild edema noted to bilateral lower extremities. Heart sounds irregularly irregular. I have greeted and performed a rapid initial assessment of this patient. A comprehensive ED assessment and evaluation of the patient, analysis of test results and completion of the medical decision making process will be conducted by additional ED providers. I have specifically instructed the patient or family members with the patient to immediately return to any nursing staff should anything change in the patient's condition or with their chief complaint. TRAVEL OUTSIDE OF THE [place] IN LAST 30 DAYS: No - Related Data Allergies/Adverse Reactions: lisinopril [Lisinopril] Allergy (Verified 01/28/19 08:59) Past Medical History - Past Medical History Cardiac Medical History: Reports: Hx Hypercholesterolemia, Hx Hypertension Denies: Hx Coronary Artery Disease, Hx Heart Attack Pulmonary Medical History: Reports: Hx Pneumonia Denies: Hx Asthma, Hx COPD Endocrine Medical History: Reports: Hx Diabetes Mellitus Type 2 Renal/ Medical History: Denies: Hx Peritoneal Dialysis Past Surgical History: Reports: Hx Orthopedic Surgery - Right knee - Immunizations Hx Diphtheria, Pertussis, Tetanus Vaccination: Yes Physical Exam - Vital signs Vitals: Pulse Resp BP Pulse Ox 115 H 16 136/99 H 96 01/10/20 19:03 01/10/20 19:03 01/10/20 19:03 01/10/20 19:03 Course - Vital Signs Vital signs: Temp Pulse Resp BP Pulse Ox 115 H 16 136/99 H 96 01/10/20 19:03 01/10/20 19:03 01/10/20 19:03 01/10/20 19:03 Doctor's Discharge - Discharge Referrals: CRISTIANE,CHRISTINA [Primary Care Provider] - Follow up as needed
--- NOTE | 2020-01-10 19:49 | RADIOLOGY REPORT (SQ) ---
EXAM DESCRIPTION: CHEST 2 VIEWS COMPLETED DATE/TIME: 01/10/2020 7:36 pm REASON FOR STUDY: SHORTNESS OF BREATH COMPARISON: 04/23/2019 EXAM PARAMETERS: NUMBER OF VIEWS: two views TECHNIQUE: Digital Frontal and Lateral radiographic views of the chest acquired. RADIATION DOSE: NA LIMITATIONS: none FINDINGS: LUNGS AND PLEURA: No opacities, masses or pneumothorax. No pleural effusion. MEDIASTINUM AND HILAR STRUCTURES: No masses or contour abnormalities. HEART AND VASCULAR STRUCTURES: Heart normal size. No evidence for failure. BONES: No acute findings. HARDWARE: None in the chest. OTHER: No other significant finding. IMPRESSION: NO ACUTE RADIOGRAPHIC FINDING IN THE CHEST. TECHNICAL DOCUMENTATION: JOB ID: [id number] 2010 [employer]- All Rights Reserved Reading location - IP/workstation name: [email or web address]
[2020-01-10 20:12] LABS: ABSOLUTE BASOPHILS # (AUTO) 0.1 10^3/uL (0.0-0.2); ABSOLUTE EOSINOPHILS # (AUTO) 0.2 10^3/uL (0.0-0.6); ABSOLUTE LYMPHOCYTES (AUTO) 3.8 10^3/uL (0.5-4.7); ABSOLUTE MONOCYTES (AUTO) 0.8 10^3/uL (0.1-1.4); ABSOLUTE NEUT (AUTO) 4.3 10^3/uL (1.7-8.2); BASOPHILS % (AUTO) 1.2 % (0-2); EOSINOPHILS % (AUTO) 2.1 % (0-6); HEMATOCRIT 35.7 % (37.9-51.0); HEMOGLOBIN 12.4 g/dL (13.5-17.0); LYMPHOCYTES % (AUTO) 40.9 % (13-45); MEAN CORPUSCULAR HEMOGLOBIN 31.5 pg (27.0-33.4); MEAN CORPUSCULAR HGB CONC 34.8 g/dL (32.0-36.0); MEAN CORPUSCULAR VOLUME 91 fl (80-97); MONOCYTES % (AUTO) 9.1 % (3-13); RED BLOOD COUNT 3.94 10^6/uL (4.35-5.55); RED CELL DISTRIBUTION WIDTH 15.5 % (11.5-14.0); SEGMENTED NEUTROPHILS % (AUTO) 46.7 % (42-78); TOTAL CELLS COUNTED % (AUTO) 100 %; WHITE BLOOD COUNT 9.3 10^3/uL (4.0-10.5)
[2020-01-10 20:30] LABS: PLATELET COUNT 119 10^3/uL (150-450)
[2020-01-10 20:36] LABS: ALBUMIN 3.9 g/dL (3.5-5.0); ALKALINE PHOSPHATASE 54 U/L (38-126); ANION GAP 11 (5-19); ASPARTATE AMINO TRANSFERASE 64 U/L (17-59); BILIRUBIN,DIRECT 0.3 mg/dL (0.0-0.4); BILIRUBIN,TOTAL 0.7 mg/dL (0.2-1.3); BLOOD UREA NITROGEN 16 mg/dL (7-20); CALCIUM 8.9 mg/dL (8.4-10.2); CARBON DIOXIDE 22 mmol/L (22-30); CHLORIDE 105 mmol/L (98-107); GLUCOSE 134 mg/dL (75-110); POTASSIUM 4.3 mmol/L (3.6-5.0); TOTAL PROTEIN 7.6 g/dL (6.3-8.2)
[2020-01-10 20:48] LABS: NT PRO BNP 2460 pg/mL (<125)
[2020-01-10] MEDS ORDERED: DILTIAZEM HCL INJ 25 MG/5 ML VIAL IV ONE ×2 (21:00→23:48)
[2020-01-10 21:08] LABS: TROPONIN I < 0.012 ng/mL
[2020-01-10 21:21] LABS: INTERNATIONAL RATION (INR) 1.13; PROTHROMBIN TIME 14.6 SEC (11.4-15.4)
[2020-01-10 21:22] LABS: PARTIAL THROMBOPLASTIN TIME 27.3 SEC (23.5-35.8)
--- NOTE | 2020-01-10 22:00 | ER Document Report ---
Entered by ERIBERTO FERNANDES SCRIBE 01/10/202058 Acting as scribe for:WILLIAM DIETRICH IV, MD ED General - General Chief Complaint: Shortness Of Breath Stated Complaint: SHORTNESS OF BREATH Time Seen by Provider: 01/10/20 19:02 [facility]: [facility] [[facility]] - Follow up as needed Mode of Arrival: Ambulatory Information source: Patient Notes: 59-year-old male with history of atrial fibrillation presents to the emergency department complaining of shortness of breath that began about a week prior to arrival. Patient states that he feels short of breath with exertion and that this has not happened to him before. Patient explains that he noticed the symptoms start a week ago, went away for two days, the next two days he felt his shortness of breath get worse with today being the worst day. Patient describes that he is having to take a "three minute break" between flights of stairs, when prior he was very active. Patient also reports associated abdominal pain that feels like a "punch" and after 20 minutes it goes away. Patient denies chest pain. Patient states that he has had bilateral swelling of his lower extremities after a day of work but this is not an acute symptom. DDx: AFib, CHF, ACS and PE. TRAVEL OUTSIDE OF THE [place] IN LAST 30 DAYS: No - Related Data Allergies/Adverse Reactions: lisinopril [Lisinopril] Allergy (Verified 01/28/19 08:59) Home Medications: Amlodipine, Eliquis, Metformin, Metoprolol, Sildenafil Past Medical History - General Information source: Patient - Social History Smoking Status: Never Smoker Cigarette use (# per day): No Chew tobacco use (# tins/day): No Frequency of alcohol use: Occasional Family History: Reviewed & Not Pertinent Patient has suicidal ideation: No Patient has homicidal ideation: No - Past Medical History Cardiac Medical History: Reports: Hx Atrial Fibrillation, Hx Hypercholesterolemia, Hx Hypertension Pulmonary Medical History: Reports: Hx Pneumonia Endocrine Medical History: Reports: Hx Diabetes Mellitus Type 2 Past Surgical History: Reports: Hx Orthopedic Surgery - Right knee - Immunizations Hx Diphtheria, Pertussis, Tetanus Vaccination: Yes Review of Systems - Review of Systems Constitutional: No symptoms reported EENT: No symptoms reported Cardiovascular: No symptoms reported Respiratory: See HPI, Short of breath Gastrointestinal: See HPI, Abdominal pain Genitourinary: No symptoms reported Male Genitourinary: No symptoms reported Musculoskeletal: No symptoms reported Skin: No symptoms reported Hematologic/Lymphatic: No symptoms reported Neurological/Psychological: No symptoms reported -: Yes All other systems reviewed and negative Physical Exam - Vital signs Vitals: Pulse Resp BP Pulse Ox 115 H 16 136/99 H 96 01/10/20 19:03 01/10/20 19:03 01/10/20 19:03 01/10/20 19:03 - Notes Notes: Physical Exam: General: Alert, appears well. HEENT: Normocephalic. Atraumatic. PERRL. Extraocular movements intact. Oropharynx clear. Neck: Supple. Non-tender. Respiratory: No respiratory distress. Clear and equal breath sounds bilaterally. Cardiovascular: Irregularly irregular and tachycardic. Abdominal: Normal Inspection. Non-tender. No distension. Normal Bowel Sounds. Back: No gross abnormalities. Extremities: Moves all four extremities. Upper extremities: Normal inspection. Normal ROM. Lower extremities: Normal inspection. No edema. Normal ROM. Neurological: Normal cognition. AAOx4. Normal speech. Psychological: Normal affect. Normal Mood. Skin: Warm. Dry. Normal color. Course - Vital Signs Vital signs: Temp Pulse Resp BP Pulse Ox 98.3 F 96 25 H 115/81 93 01/10/20 21:08 01/11/20 00:22 01/11/20 01:01 01/11/20 01:01 01/11/20 01:01 - Laboratory Result Diagrams: 01/10/20 19:53 01/10/20 19:53 Laboratory results interpreted by me: 01/10/20 01/10/20 01/10/20 19:53 19:53 19:53 RBC 3.94 L Hgb 12.4 L Hct 35.7 L RDW 15.5 H Plt Count 119 L Glucose 134 H AST 64 H ALT 71 H NT-Pro-B Natriuret Pep 2460 H - EKG Interpretation by Me Additional EKG results interpreted by me: 01/11/20 02:55 EKG obtained on 01/10/2020 at 1854 hrs. was interpreted by this MD. Findings: Irregularly irregular tachycardia, rate 130, normal axis, no P waves are seen, QRS complexes appear narrow, there are no obvious ST segment elevations or depressions present to suggest acute myocardial ischemia or infarction. Impression A. fib with RVR. - Consults dr. boo da silva Time consulted: 02:33 - pt's rate is down to approximately 100 with the combination of diltiazem and digoxin. Dr. Da Silva feels the patient can be safely discharged and started on Cardizem CD 180 mg daily and digoxin 125 mcg p.o. daily and follow-up with Dr. Da Silva and his office next week. Reason for consultation: 01/11/20 02:33 a fib with rvr Discharge - Discharge Clinical Impression: Atrial fibrillation with RVR Condition: Good Disposition: HOME, SELF-CARE Additional Instructions: Return to the Emergency Department without delay if any worse. HOME CARE INSTRUCTIONS & INFORMATION: Thank you for choosing us for your medical needs. We hope you're satisfied with the care you received. After you leave, you must properly care for your problem and, at the same time, observe its progress. Any condition can change. Some illnesses can change rapidly over hours or days. If your condition worsens, return to the Emergency Department or see your physician promptly. ABOUT YOUR X-RAYS AND EKG'S: If you had an EKG or X-rays taken, they have been read by the Emergency Physician. The X-rays and EKG's will also be read by a Radiologist or Life Consultant within 24 hours. If discrepancies are noted, you will be notified by telephone. Please be certain the ED has a correct telephone number & address where you can be reached. Also, realize that some fractures or abnormalities do not show up on initial X-rays. If your symptoms continue, see your physician. ABOUT YOUR LABORATORY TEST: If you had laboratory tests, the results have been reviewed by the Emergency Physician. Some test results (for example cultures) may not be available for several days. You will be contacted if any test result shows you need additional treatment. Please be certain the ED has a correct telephone number and address where you can be reached. ABOUT YOUR MEDICATIONS: You will receive instructions on how to take your medicine on the prescription label you receive. Additional information may be provided by the Pharmacy. If you have questions afterwards, call the ED for clarification or further instructions. Some prescribed medications may cause drowsiness. Do not perform tasks such as driving a car or operating machinery without consulting your Pharmacist. If you feel you need a refill of pain medication, your condition will need re-evaluation. Please do not call for a refill of any medication. ABOUT YOUR SIGNATURE: Signature of this document acknowledges to followin. Understanding that you received emergency treatment and that you may be released before al medical problems are known or treated. Please be certain the ED has a correct phone number & address where you can be reached. 2. Acknowledgement that you will arrange for follow-up care as recommended. 3. Authorization for the Emergency Physician to provide information to your follow-up Physician in order to maximize your care. AT ANY TIME, IF YOUR SYMPTOMS CHANGE SIGNIFICANTLY OR WORSEN OR YOU DEVELOP NEW SYMPTOMS, RETURN TO THE EMERGENCY DEPARTMENT IMMEDIATELY FOR RE-EVALUATION. OUR GOAL IS TO PROVIDE EXCELLENT MEDICAL CARE! WE HOPE THAT WE HAVE MET YOUR EXPECTATIONS DURING YOUR EMERGENCY DEPARTMENT VISIT AND THAT YOU FEEL YOU HAVE RECEIVED EXCELLENT CARE! Atrial Fibrillation Atrial fibrillation is an abnormal heart rhythm, caused by irregular electrical circuits in the upper heart chamber. It can be caused by heart valve disease, hardening of the arteries, or metabolic problems such as thyroid disease, or may occur without a clear cause. Atrial fibrillation may occur only occasionally, or may be chronic. Atrial fibrillation often results in a very fast heart rate, with palpitations, lightheadedness, and shortness of breath. Treatment is to slow the abnormally fast rate, and to convert the rhythm back to normal, if possible. Many patients stay in atrial fibrillation for years without symptoms or complications. Your doctor will decide whether you can be converted back to a normal heart rhythm. Contact the doctor or emergency medical system at once if you develop chest pain, shortness of breath, or severe lightheadedness, or if you develop any disturbance of consciousness, problems with speech, or localized weakness. Prescriptions: Diltiazem HCl [Cardizem Cd 180 mg Capsule] 1 cap.sr PO DAILY #30 cap.sr Digoxin 125 mcg PO DAILY #30 tablet Referrals: [facility] [Primary [facility] Provider] - Follow up as needed BOO DA SILVA MD [ACTIVE STAFF] - 01/13/20 I personally performed the services described in the documentation, reviewed and edited the documentation which was dictated to the scribe in my presence, and it accurately records my words and actions.
--- NOTE | 2020-01-10 22:27 | EKG REPORT ---
SEVERITY:- ABNORMAL ECG - ATRIAL FIBRILLATION MULTIFORM VENTRICULAR PREMATURE COMPLEXES : Confirmed by: Connor Hua 10-Jan-2020 22:26:32
[2020-01-10] MEDS: DILTIAZEM HCL/D5W 125 MG/125 ML RTUINJ IV PRN ×2 (23:24→23:36)
[2020-01-10] MEDS ORDERED: APIXABAN 5 MG TABLET PO ONE (23:48)
[2020-01-10] MEDS ORDERED: DIGOXIN INJ 0.5 MG/2 ML AMPULE IV ONE (23:58)
[2020-01-11 03:47] VITALS: BP 134/92
== END 2020-01-11 03:46 | disposition home or self-care (01) ==
LOC: ER 18:50
DX: I48.91 Unspecified atrial fibrillation (principal); R06.02 Shortness of breath; R10.9 Unspecified abdominal pain; M79.89 Other specified soft tissue disorders; I50.9 Heart failure, unspecified; Z79.899 Other long term (current) drug therapy; Z79.01 Long term (current) use of anticoagulants; Z79.84 Long term (current) use of oral hypoglycemic drugs; I10 Essential (primary) hypertension; E11.9 Type 2 diabetes mellitus without complications
CPT/HCPCS: 93005; 96376; 99285; 96365; 96366; 36415; 83735; 84443; 85025; 85610; 85730; 80053; 84484; 85379; 83880; 71046; 93010; J1160; J3490 ×2

== ENCOUNTER 2020-03-14 13:05 | Emergency (ER) | payer OTHER ==
[2020-03-14 13:25] VITALS: BP 144/89
[2020-03-14] MEDS ORDERED: KETOROLAC TROMETHAMINE 60 MG/2 ML SDV IM ONE (13:29)
--- NOTE | 2020-03-14 14:21 | RADIOLOGY REPORT (SQ) ---
EXAM DESCRIPTION: KNEE RIGHT 4 VIEWS IMAGES COMPLETED DATE/TIME: 03/14/2020 2:06 pm REASON FOR STUDY: medial knee pain COMPARISON: None. NUMBER OF VIEWS: Four views. TECHNIQUE: AP, lateral, and both oblique radiographic images acquired of the right knee. LIMITATIONS: None. FINDINGS: MINERALIZATION: Normal. BONES: No acute fracture or dislocation. No worrisome bone lesions. JOINT: Small suprapatellar knee joint effusion. Moderate patellofemoral medial and lateral compartme nt joint space narrowing. Diffuse chondrocalcinosis. SOFT TISSUES: No soft tissue swelling. No radio-opaque foreign body. OTHER: No other significant finding. IMPRESSION: No acute fracture or malalignment. Knee joint effusion with chondrocalcinosis and joint space narrowing TECHNICAL DOCUMENTATION: JOB ID: [id number] [employer]- All Rights Reserved Reading location - IP/workstation name: [email or web address]
--- NOTE | 2020-03-14 15:09 | ER Document Report ---
HPI - HPI Time Seen by Provider: 03/14/20 13:24 Pain Level: 2 Notes: Otherwise healthy 59-year-old male patient presents emergency department with right knee pain and swelling. Patient denies any direct injury to the area. He reports pain and swelling to been ongoing for the last 2 to 3 days. Denies running fevers. - MUSCULOSKELETAL Musculoskeletal: REPORTS: Extremity pain Past Medical History - General Information source: Patient - Social History Smoking Status: Never Smoker Chew tobacco use (# tins/day): No Frequency of alcohol use: None Drug Abuse: None Family History: Reviewed & Not Pertinent Patient has homicidal ideation: No - Past Medical History Cardiac Medical History: Reports: Hx Atrial Fibrillation, Hx Hypercholesterolemia, Hx Hypertension Denies: Hx Coronary Artery Disease, Hx Heart Attack Pulmonary Medical History: Reports: Hx Pneumonia Denies: Hx Asthma, Hx COPD Endocrine Medical History: Reports: Hx Diabetes Mellitus Type 2 Renal/ Medical History: Denies: Hx Peritoneal Dialysis Past Surgical History: Reports: Hx Orthopedic Surgery - Right knee - Immunizations Hx Diphtheria, Pertussis, Tetanus Vaccination: Yes Vertical Provider Document - CONSTITUTIONAL Notes: PHYSICAL EXAMINATION: GENERAL: Well-appearing, well-nourished and in no acute distress. HEAD: Atraumatic, normocephalic. EYES: Pupils equal round extraocular movements intact, conjunctiva are normal. ENT: Nares patent NECK: Normal range of motion LUNGS: No respiratory distress Musculoskeletal: Swelling noted to right medial knee, no bony deformity noted. Slightly limited range of motion. Strong popliteal pulse. NEUROLOGICAL: Normal speech, normal gait. PSYCH: Normal mood, normal affect. SKIN: Warm, Dry, normal turgor, no rashes or lesions noted. - INFECTION CONTROL TRAVEL OUTSIDE OF THE [place] IN LAST 30 DAYS: No Course - Vital Signs Vital signs: Temp Pulse Resp BP Pulse Ox 98.4 F 65 18 144/89 H 96 03/14/20 13:24 03/14/20 13:12 03/14/20 13:12 03/14/20 13:12 03/14/20 13:12 Procedures - Immobilization Right knee Immobilizer type: Crutches, Knee immobilizer Performed by: PCT Post-Proc Neuro Vasc Exam: Normal Alignment checked and good: Yes Discharge - Discharge Clinical Impression: Effusion, right knee Right knee pain Qualifiers: Chronicity: acute Qualified Code(s): M25.561 - Pain in right knee Condition: Stable Disposition: HOME, SELF-CARE Additional Instructions: Knee Effusion You have a fluid collection in the knee joint, called an effusion. This fluid build up can occur from irritation of the synovial membrane lining the knee joint or from a more serious injury to the knee. Irritation of the memb kevin can occur from excessive, repetitive knee activitiy, like kneeling or squatting for extended periods or even just excessive walking, jogging, or skiing. Effusions also can occur with infections in the joint and with some arthritic conditions, especially gout. Fluid collections in these situations are usually yellow in color and either clear or cloudy in appearance. Significant injury to the knee can result in fluid collection which is partly or entirely blood and this condition is known as a hemarthrosis of the knee joint. If the fluid collection is not too large and/or painful, it can be managed conservatively with rest, ice packs, and anti-inflammatory and pain medications as needed. If the fluid collection is large and very painful, the knee joint can be drained (aspirated) by a relatively minor procedure of inserting a needle in the joint and removing some or all of the fluid present. If your knee was aspirated, you should rest it as much as possible for a few days, keep a pressure dressing around the knee and apply ice packs for at least 48 - 72 hours. If there are signs of developing infection such as heat and redness of the knee, fever, etc. you should return immediately for a recheck. Take ibuprofen 600 mg every 6 hours for the next several days. Use the narcotic pain medication for severe pain only. Follow-up with orthopedics if pain not significantly improving over the next 3 to 5 days. Prescriptions: Hydrocodone/Acetaminophen [Greer 5-325 mg Tablet] 1 tab PO Q6H #12 tablet Referrals: [facility] [[facility]] - Follow up as needed
== END 2020-03-14 15:35 | disposition home or self-care (01) ==
LOC: ER 13:05
DX: M25.461 Effusion, right knee (principal); M25.561 Pain in right knee; M79.89 Other specified soft tissue disorders; I48.91 Unspecified atrial fibrillation; E78.00 Pure hypercholesterolemia, unspecified; I10 Essential (primary) hypertension; E11.9 Type 2 diabetes mellitus without complications
CPT/HCPCS: 99283; 96372; 73564; J1885

== ENCOUNTER 2020-05-09 11:00 | Emergency (ER) | payer OTHER ==
[2020-05-09] MEDS ORDERED: DEXAMETHASONE SOD PHOS INJ 10 MG/1 ML VIAL IM ONE (11:17)
[2020-05-09] MEDS ORDERED: METHYLPREDNISOLONE ACETATE INJ 40 MG/1 ML ML IM ONE (11:17)
--- NOTE | 2020-05-09 11:21 | ER Document Report ---
HPI - HPI Patient complains to provider of: Right knee pain Time Seen by Provider: 05/09/20 11:08 Onset: Last week Onset/Duration: Waxing and waning Pain Level: 3 Context: This 59-year-old male presented to the emergency room today stating that he has right knee pain which is been ongoing for approximately a week he strained it when he was pulling in a garbage can with his grandkids Associated Symptoms: None Exacerbated by: Denies Relieved by: Denies - MUSCULOSKELETAL Musculoskeletal: REPORTS: Extremity pain Past Medical History - General Information source: Patient - Social History Smoking Status: Never Smoker Chew tobacco use (# tins/day): No Frequency of alcohol use: Occasional Drug Abuse: None Family History: Reviewed & Not Pertinent - Past Medical History Cardiac Medical History: Reports: Hx Atrial Fibrillation, Hx Hype rcholesterolemia, Hx Hypertension Denies: Hx Coronary Artery Disease, Hx Heart Attack Pulmonary Medical History: Reports: Hx Pneumonia Denies: Hx Asthma, Hx COPD Endocrine Medical History: Reports: Hx Diabetes Mellitus Type 2 Renal/ Medical History: Denies: Hx Peritoneal Dialysis Past Surgical History: Reports: Hx Orthopedic Surgery - Right knee - Immunizations Hx Diphtheria, Pertussis, Tetanus Vaccination: Yes Vertical Provider Document - CONSTITUTIONAL Agree With Documented VS: Yes Exam Limitations: No Limitations - INFECTION CONTROL TRAVEL OUTSIDE OF THE [place] IN LAST 30 DAYS: No - HEENT HEENT: Atraumatic, Conjuctival Injection, Normocephalic, PERRLA - NECK Neck: Normal Inspection - RESPIRATORY Respiratory: Breath Sounds Normal, No Respiratory Distress - CARDIOVASCULAR Cardiovascular: Regular Rate, Regular Rhythm - GI/ABDOMEN Gastrointestinal: Abdomen Soft, Abdomen Non-Tender - REPRODUCTIVE Male Genitalia: Normal Inspection - BACK Back: Normal Inspection - MUSCULOSKELETAL/EXTREMETIES Musculoskeletal/Extremeties: MAEW, Tender - Tenderness to right knee. - NEURO Level of Consciousness: Awake, Alert Motor/Sensory: No Motor Deficit - DERM Integumentary: Warm, Dry Course - Re-evaluation Re-evalutation: 05/09/20 12:00 X-ray results were discussed with the patient patient follow-up with orthopedist in 2 to 3 days. Steroid injection was provided patient take Motrin for discomfort. She has a knee immobilizer at home and will continue to wear that following up with Dr. Huntley. 05/09/20 12:03 - Vital Signs Vital signs: Temp Pulse Resp BP Pulse Ox 98.4 F 63 16 142/92 H 97 05/09/20 11:07 05/09/20 11:04 05/09/20 11:04 05/09/20 11:04 05/09/20 11:04 - Laboratory Laboratory results interpreted by me: 05/09/20 11:10 POC Glucose 170 H Discharge - Discharge Clinical Impression: Right knee pain Qualifiers: Chronicity: acute Qualified Code(s): M25.561 - Pain in right knee Condition: Good Disposition: HOME, SELF-CARE Instructions: Use of Crutches ([facility]), Suspected Internal Knee Injury ([facility]) Referrals: [facility] [Primary [facility]] - Follow up as needed SHILOH HUNTLEY MD [ACTIVE PROVISIONAL STAFF] - Follow up as needed
--- NOTE | 2020-05-09 11:47 | RADIOLOGY REPORT (SQ) ---
EXAM DESCRIPTION: KNEE RIGHT 3 VIEWS IMAGES COMPLETED DATE/TIME: 05/09/2020 11:32 am REASON FOR STUDY: pain COMPARISON: 03/14/2020 NUMBER OF VIEWS: Three views. TECHNIQUE: AP, lateral, and sunrise patella radiographic images acquired of the right knee. LIMITATIONS: None. FINDINGS: MINERALIZATION: Normal. BONES: No acute fracture or dislocation. No worrisome bone lesions. Tricompartmental degenerative c hanges are again noted. JOINT: Tiny joint effusion. Incidental note is again made of chondrocalcinosis of both the medial an d lateral compartments. SOFT TISSUES: No soft tissue swelling. No radio-opaque foreign body. OTHER: No other significant finding. IMPRESSION: No evidence of acute osseous injury. Re- demonstration of tricompartmental degenerative changes. TECHNICAL DOCUMENTATION: JOB ID: [id number] 2010 [employer]- All Rights Reserved Reading location - IP/workstation name: [email or web address]
[2020-05-09 12:02] VITALS: BP 142/95
== END 2020-05-09 12:07 | disposition home or self-care (01) ==
LOC: ER 11:00
DX: M25.561 Pain in right knee (principal); X50.9XXA Other and unspecified overexertion or strenuous movements or postures, initial encounter; Y93.89 Activity, other specified; I10 Essential (primary) hypertension; E11.9 Type 2 diabetes mellitus without complications; Z98.890 Other specified postprocedural states
CPT/HCPCS: 99283; 96372; 82962; 73562; J1030; J1100